=== PATIENT | male | born 1945 | race American Indian/Alaskan Native ===

== ENCOUNTER 2016-11-08 11:24 | Inpatient (IN) | payer MEDICARE, OTHER ==
--- NOTE | ~2016-11-08 | DS ---
Unit #: [id number] #: [id number] Patient: SKY FAJARDO [id number] [address] [place], [place] [address] [id number] I MR#: [id number] NAME: SKY FAJARDO ROOM: [facility] Age: 71 Sex: M Admission Date: 11/08/2016 : 1945 Discharge Date: 11/09/2016 Attending Physician: Garett Barajas M.D. Primary Care Physician: Aster Primary Care Physician DISCHARGE SUMMARY ADMITTING DIAGNOSIS Hematuria. 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 Alonso. HISTORY OF PRESENT ILLNESS The patient is a 71-year-old man with a past medical history of ANCA vasculitis, ESRD on hemodialysis, chronic anemia, BPH, hypothyroidism, COPD who presented to the emergency room with a chief complaint of abdominal pain and blood in the urine. He complained of noting gross blood and blood clots. His hemoglobin remained stable. He was dialyzed last night. HOSPITAL COURSE We were monitoring his H and H and renal was following for dialysis requirements. In the hospital course, he also mentioned that he was supposed to get a lung biopsy tomorrow with Dr. Campuzano at [facility] and he requested to be transferred to [facility] for further care. I spoke with Dr. Currie at [facility] and he is kind to accept the patient. The patient follows up with Dr. Amaya at [facility] Urology and he also follows up with Dr. Campuzano and [facility] Renal team. I requested Dr. Currie to consult those consultants, and he will be transferred once a bed is available. PHYSICAL EXAMINATION On the day of the discharge, his physical examination: VITAL SIGNS: Temperature 98, pulse rate 85, respiratory rate 20, blood pressure 148/86. GENERAL: The patient is alert and oriented x3, lying in the bed in no acute distress. HEENT: Normocephalic and atraumatic. No icterus. PERRLA. Extraocular muscles intact. CHEST: Bilateral equal air entry. Minimal rhonchi. ABDOMEN: Soft, nontender. EXTREMITIES: No edema. Normal pulses. DIAGNOSTIC STUDIES LABORATORY: This morning glucose 101, BUN 28, creatinine 5.5, sodium 137, potassium 3.6, chloride 100, bicarbonate 27. WBC 10.7, hemoglobin 10.6. Please note, hemoglobin yesterday was 10.3. Platelet count is 109,000. UA shows innumerable WBC in the urine. MEDICATIONS Unit #: [id number] #: [id number] Patient: SKY FAJARDO His transfer medications include: 1. Flomax 0.4 mg at bedtime. 2. Zofran 4 mg p.r.n. nausea and vomiting. 3. Singulair 10 mg daily. 4. Synthroid 20 mcg p.o. daily. 5. Folic acid. 6. Renagel one capsule p.o. daily. 7. Rocephin 1 g IV daily. Patient is agreeable for transfer. Total time spent in the care, 35 minutes. Dictated by... Garett Barajas M.D. [place] TD: 11/09/2016 15:35 JOB #: [id number] DISCHARGE SUMMARY X X DISCHARGE SUMMARY
--- NOTE | ~2016-11-08 | CT4 ---
[facility] A Service of [facility] RADIOLOGY TEXT RESULTS PATIENT: SKY FAJARDO LOCATION: C3A 342-01 : 43 UNIT #: [id number] AGE: [address]: Garett Barajas MD SEX: M ORDER DR: [id number] [facility] [address] [facility]. [place], [place] [address] [id number] I MR#: [id number] Acc #: [id number] NAME: SKY FAJARDO : 1945 SEX: M STUDY DATE/TIME: 11/08/2016 10:47 UNIT: CEDOF ROOM: 83452 STUDY DESCRIPTION: CT Abd and Pelv Wo Cont Attending Physician: Elsy Avila M.D. Ordering Physician: Dyan Carreon M.D. Primary Care Physician: Primary Care Physician No MEDICAL IMAGING REPORT This report is preliminary unless electronic signature is present EXAM CT abdomen and pelvis without contrast HISTORY Abdominal pain, blood in urine for 3 days. History of dialysis. COMPARISON CT abdomen and pelvis, 04/19/2016 TECHNIQUE Axial images were performed through the abdomen and pelvis without contrast. Multiplanar reconstructed images were reviewed at a workstation. This CT exam was performed with one or more of the following radiation dose reduction techniques: automatic exposure control, adjustment of mA and/or kV according to patient size, and iterative reconstruction. FINDINGS ABDOMEN: The lung bases remarkable for fibrosis and emphysematous changes. No acute airspace disease or effusions. The liver, spleen and gallbladder are unremarkable. The pancreas and adrenal glands are unremarkable. There is diffuse perinephric stranding about the left kidney with thickening of Gerota's fascia. Mild prominence of the left renal collecting system but no definitive obstructing stone or lesion. The perinephric edema nonspecific but could be seen with acute pyelonephritis or obstruction. Patient also demonstrates some generalized mesenteric edema. Minimal perinephric edema about the right kidney. Coarse calcifications within the posterior aspect of the right kidney probably represents cortical calcification. Aorta and IVC unremarkable. The visualized GI tract unremarkable. There is a small amount of free fluid in the pelvis. [facility] A Service of [facility] RADIOLOGY TEXT RESULTS PATIENT: TANASKY LOCATION: C3A PC 342-01 : 43 UNIT #: [id number] AGE: [address]: Garett Barajas MD SEX: M ORDER DR: PELVIS: Bladder contracted. Prostate unremarkable. The osseous structures show multiple endplate deformities L2, L3, L4 compatible with interosseous disc herniations or Schmorl's nodes. These are unchanged from prior studies. IMPRESSION 1. Asymmetric perinephric edema left greater than right with extensive thickening of Gerota's fascia surrounding the left kidney and some edema and fluid within the left lateral conal fascia and left posterior pararenal space. The findings are nonspecific and can be seen with an acute infectious process such as pyelonephritis or acute obstruction. Patient does demonstrate minimal prominence of the left renal collecting system but no discrete obstructing lesion such as a stone or mass lesion is identified. There is perinephric edema is in combination with some generalized mesenteric edema which is nonspecific in this patient on dialysis. 2. Visualized GI tract unremarkable. 3. Trace amount of free fluid in the pelvis, nonspecific. 4. Diffuse lung disease with underlying emphysema and fibrosis but no definite acute process. Dictated by... Juan C Baires M.D. THIS IS AN ELECTRONICALLY VERIFIED REPORT Juan C Baires M.D. at 11/09/2016 4:59 PM Yasmin TD: 11/08/2016 17:29 JOB #: [id number] MEDICAL IMAGING REPORT COPY
--- NOTE | ~2016-11-08 | HP ---
Unit #: [id number] #: [id number] Patient: SKY FAJARDO [id number] [address] [place], [place] [address] [id number] MR#: [id number] NAME: SKY FAJARDO ROOM: Age: 71 Sex: M Admission Date: 11/08/2016 : 1945 Attending Physician: Dyan Carreon M.D. Primary Care Physician: No Primary Care Physician HISTORY AND PHYSICAL CHIEF COMPLAINT Abdominal pain, blood in urine. HISTORY OF PRESENT ILLNESS The patient is a 71-year-old male with a past medical history of ASCA vasculitis, endstage renal disease on dialysis, chronic anemia, BPH, hypothyroidism and chronic obstructive pulmonary disease. The patient presented to the emergency department for evaluation of the above. The patient states that he has not been feeling well for about two days. He reports nausea and vomiting. He states that he has had more than 10 bouts of nonbloody emesis within the past 24 hours. He states that he had a normal bowel movement today. He has had pain around his umbilicus. He states that it feels like he has "trapped gas." He states that the pain is fairly constant in nature. There are no exacerbating or alleviating factors. He has had fever. He states that his temperature was 102.9 on the day prior to admission. He denies any cough or cold symptoms. He also has had intermittent blood in the urine. He has had grossly bloody urine for the past two days. In the emergency department temperature was 98.6, pulse 89, blood pressure 142/71. CT of the abdomen and pelvis shows findings concerning for possible pyelonephritis with perinephric stranding (left greater than right). CBC notable for a white blood cell count of 16.8, platelets 104. Urinalysis notable for 1+ leukocyte esterase, 4+ blood with innumerable red blood cells and 2-5 white blood cells. In the emergency department he was given vancomycin and Rocephin. He is being admitted to [facility] for evaluation and further treatment. PAST MEDICAL HISTORY 1. Admission to [facility] 09/10/2016 through 09/15/2016 for urinary tract infection with coag negative staph sepsis. He was discharged home on Zyvox. 2. ANCA vasculitis. The patient is not on any immunosuppression. 3. Endstage renal disease on dialysis Tuesday, Tuesday and Tuesday. Followed by [facility]. His last dialysis was on 11/05/2016. 4. Chronic anemia. 5. BPH. 6. Hypothyroidism. 7. Chronic obstructive pulmonary disease, followed by Dr. Faustin. PAST SURGICAL HISTORY 1. Exploratory laparotomy. 2. Shunt for dialysis, left upper extremity. Unit #: [id number] #: [id number] Patient: DULAK,SKY 3. Cystoscopy. SOCIAL HISTORY The patient quit smoking. He reports occasional alcohol use. FAMILY HISTORY Notable for him being orphaned at 18 months. He is not sure of his family history. ALLERGIES Ibuprofen. CURRENT MEDICATIONS 1. Synthroid 0.2 mg daily. 2. Montelukast 10 mg daily. 3. Flomax 0.4 mg daily. 4. Renal softgel daily. REVIEW OF SYSTEMS A complete review of systems is negative except as indicated in the history of present illness. PHYSICAL EXAMINATION GENERAL: The patient is awake and alert, in no acute distress. VITALS: Temperature 98.6, pulse 89, respiratory rate 15, blood pressure 142/71, oxygen saturation 98% on room air. HEENT: The head is atraumatic. Mucous membranes are moist. NECK: Supple. Trachea midline. LUNGS: Clear to auscultation bilaterally with no increased work of breathing. HEART: Regular rate and rhythm. ABDOMEN: Soft. He is mildly tender to palpation in the periumbilical area. Bowel sounds are present in all four quadrants. EXTREMITIES: Nontender with no pedal edema. He does have a fistula in the left upper extremity with thrill and bruit. NEUROLOGIC: The patient is awake and alert. He follows commands. PSYCHIATRIC: Mood and affect are normal. The patient is cooperative. SKIN: Skin of examined areas is warm and dry. DIAGNOSTIC STUDIES IMAGING: CT of the abdomen and pelvis shows perinephric edema (left greater than right), concerning for possible pyelonephritis. LABORATORY: INR is 1. CMP notable for sodium of 131, chloride 96, bicarb 21, BUN 52, creatinine 9, calcium 8.1, alkaline phosphatase 195, albumin 3.2, lipase 17, magnesium 1.8, BNP 777. CBC notable white blood cell count 16.8, hemoglobin 10.3, hematocrit 30.1, platelets 104. Urinalysis notable for 1+ leukocyte esterase, 3+ protein, 4+ blood with innumerable red blood cells. ASSESSMENT The patient is a 71-year-old male with 1. Abdominal pain. 2. Gross hematuria. The patient had cystoscopy in 09/2016 (no records). He does have a history of ANCA vasculitis. 3. Leukocytosis. The patient denies being on prednisone. CT is showing findings concerning for possible pyelonephritis. He was given vancomycin and Rocephin in the emergency department. Unit #: [id number] #: [id number] Patient: DULVIANNEYSKY 4. ANCA vasculitis. Not on immunosuppression. 5. Endstage renal disease, followed by [facility], on dialysis Tuesday, Tuesday and Tuesday, with last dialysis being 11/05/2016. 6. Chronic anemia. The patient's hemoglobin was 9.7 on 09/14/2016 and it is 10.3 today. 7. Thrombocytopenia. The patient's platelet count has been as low as 109 on 04/20/2016 and it is 104 today. 8. BPH. 9. Hypothyroidism. 10. Chronic obstructive pulmonary disease. 11. Former smoker. PLAN 1. Admit for observation to intermediate level. 2. Advance diet to clear liquids as tolerated. 3. Blood cultures times two. 4. Urine culture and sensitivity on urine in the lab. 5. Rocephin IV and vancomycin IV. Pending further workup. The patient does have a history of coag negative staph, sepsis and was discharged home on Zyvox following last hospital admission. 6. Get cystoscopy report from [facility]. 7. Consult [facility] regarding endstage disease on dialysis. Check lactic acid. 8. Chest x-ray for further evaluation of leukocytosis. 9. EKG and cardiac enzymes. 10. TSH. 11. Repeat labs in the morning. 12. SCDs for DVT prophylaxis. 13. P.r.n. Zoan. 14. Additional workup and consultants based on the above. Dictated by Elsy Avila M.D. Kay TD: 11/08/2016 13:15 JOB #: [id number] HISTORY AND PHYSICAL X Elsy vAila MD HISTORY AND PHYSICAL
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
--- NOTE | ~2016-11-08 | EKG ---
PATIENT: SKY FAJARDO UNIT #: [id number] Ventricular Rate: 83 BPM Atrial Rate: 83 BPM P-R Interval: 166 ms QRS Duration: 106 ms Q-T Interval: 408 ms QTC Calculation(Bezet): 479 ms P Loomis: 64 degrees Calculated R Loomis: 74 degrees Calculated T Loomis: 85 degrees Diagnosis Line: Normal sinus rhythm Diagnosis Line: Moderate voltage criteria for LVH, may be normal Diagnosis Line: variant Diagnosis Line: Borderline ECG Diagnosis Line: When compared with ECG of 08-NOV-2016 13:25, Diagnosis Line: (unconfirmed) Diagnosis Line: No significant change was found Diagnosis Line: Confirmed by KENISHA HOOD MD ([id number]) on Diagnosis Line: 11/09/2016 4:11:19 PM INTERPRETING MD: ERWIN SON
--- NOTE | ~2016-11-08 | CR72 ---
[facility] A Service of [facility] RADIOLOGY TEXT RESULTS PATIENT: SKY FAJARDO LOCATION: C3A PC : 43 UNIT #: [id number] AGE: [address]: Elsy Avila MD SEX: M ORDER DR: [id number] [place] [id number] [facility]. [place], [place] [address] [id number] I MR#: [id number] Acc #: [id number] NAME: SKY FAJARDO : 1945 SEX: M STUDY DATE/TIME: 11/08/2016 13:52 UNIT: C3A PCU ROOM: 342 STUDY DESCRIPTION: CR Chest Single View Portable Attending Physician: Elsy Avila M.D. Ordering Physician: Elsy Avila M.D. Primary Care Physician: Primary Care Physician No MEDICAL IMAGING REPORT This report is preliminary unless electronic signature is present EXAM Frontal chest, 11/08/2016 INDICATION 71-year-old male with elevated blood count. Short of air, abdominal pain and chest pain. Symptoms began today. History of asthma and dialysis. TECHNIQUE Frontal chest compared with 11/04/2016. FINDINGS Cardiac silhouette is within normal limits. The vascularity is unremarkable. There are interstitial and faint alveolar opacities in the lower lobes, right greater than left that are new compared to the prior study and suspicious for subtle parenchymal infiltrates. No associated effusion. No pneumothorax. There is underlying COPD. There is chronic-appearing apical scarring bilaterally. This is worse on the right than the left. IMPRESSION 1. COPD and chronic lung changes with faint new superimposed opacities in both mid and lower lung zones, right greater than left suspicious for interval development of parenchymal infiltrate/pneumonia. Follow up to clearing after appropriate therapy is recommended. 2. No effusion or pneumothorax. 3. Biapical scarring, right greater than left, better demonstrated on recent CT 09/12/2016. Dictated by... Bryce Bourne M.D. [facility] A Service of [facility] RADIOLOGY TEXT RESULTS PATIENT: DULAK,SKY LOCATION: C3A : 43 UNIT #: [id number] AGE: [address]: Elsy Avila MD SEX: M ORDER DR: THIS IS AN ELECTRONICALLY VERIFIED REPORT Bryce Bourne M.D. at 11/09/2016 7:20 AM Ramandeep TD: 11/08/2016 23:16 JOB #: [id number] MEDICAL IMAGING REPORT COPY
[2016-11-08 09:28] LABS: BASOPHIL# 0.1 X10e3 (0-0.3); BASOPHIL% 0.5 % (0-2.5); EOSINOPHIL# 0.1 X10e3 (0-0.7); EOSINOPHIL% 0.8 % (0.0-7.0); HEMATOCRIT 30.1 % (38.0-50.0); HEMOGLOBIN 10.3 gm/dL (13.0-16.0); LYMPHOCYTE# 0.9 X10e3 (1.0-3.5); LYMPHOCYTE% 5.1 % (17.0-45.0); MEAN CELL VOLUME 97.3 FL (83-96); MEAN CORPUSCULAR HEMOGLOBIN 33.3 PG (28-34); MEAN CORPUSCULAR HGB CONC 34.2 g/dL (30-36); MEAN PLATELET VOLUME 7.3 FL (6.5-11.5); MONOCYTE# 1.6 X10e3 (0-1.0); MONOCYTE% 9.3 % (3.0-12.0); NEUTROPHIL# 14.1 X10e3 (1.5-7.1); NEUTROPHIL% 84.3 % (40-75); PARTIAL THROMBOPLASTIN TIME 30.3 SECONDS (23.5-31.3); PLATELET COUNT 104 X10e3 (140-420); PROTHROMBIN TIME (PATIENT) 10.5 SECONDS (9.6-11.5); RED CELL DISTRIBUTION WIDTH 15.6 % (11.0-15.5); WHITE BLOOD COUNT 16.8 X10e3 (4.0-10.5)
[2016-11-08 09:30] LABS: DIFF IND YES
[2016-11-08 09:58] LABS: ALBUMIN SERUM 3.2 g/dL (3.5-5.0); BILIRUBIN, DIRECT 0.2 mg/dL (0.0-0.2); BILIRUBIN,INDIRECT 0.8 mg/dL (0.0-0.9); BUN/CREATININE RATIO 5.77; CALCIUM SERUM 8.1 mg/dL (8.4-10.2); GLOM FILT RATE Estimated 6.2 mL/min (>60); MAGNESIUM 1.8 mg/dL (1.6-3.0); POTASSIUM 3.5 mmol/L (3.5-5.1); PROTEIN TOTAL SERUM 6.4 g/dL (6.0-8.3)
[2016-11-08 10:42] LABS: PLATELET ESTIMATE DECREASED (NORMAL); RBC NORMAL YES
[2016-11-08 11:20] LABS: URINE SOURCE CLEAN CATCH
[~2016-11-08 11:24] MED LIST: ADVAIR 250-501 EACH INH; ALBUTEROL17 GM INH; FLOMAX0.4 M1 PO; NEPHROCAPS1 CAP PO; OMNICEF300 M1 PO; PEPCID AC20 MG PO; RENAL VITAMIN0.8 MG PO; RENAVIT TABLET0.8 MG PO; STOOL SOFTENER50 MG PO; SYNTHROID0.05 MG PO; SYNTHROID0.15 MG PO; SYNTHROID175 MCG PO; TEMOVATE 0.05%15 GM EXT; VELPHORO500 MG PO; ZYVOX600 MG PO
[2016-11-08 11:32] LABS: URINE APPEARANCE CLOUDY; URINE BILIRUBIN NEG (NEG); URINE BLOOD 4+ (NEG); URINE COLOR RED; URINE GLUCOSE 50 MG/DL (NORM); URINE KETONE NEG (NEG); URINE LEUKOCYTE ESTERASE 1+ (NEG); URINE NITRATE NEG (NEG); URINE PROTEIN 3+ (NEG); URINE SPECIFIC GRAVITY 1.015 (1.003-1.035); URINE UROBILINOGEN NORM (NORM)
[2016-11-08 11:49] LABS: URBCS1 AUWI INNUM /[HPF] (0-2)
[2016-11-08 11:50] LABS: CULTURE INDICATED? NO; URINE BACTERIA AUWI NEG (NEGATIVE)
[2016-11-08] MEDS ORDERED: SYNTHROID0.2 MG PO (12:17)
[2016-11-08] MEDS ORDERED: MONTELUKAST SOD10 MG PO (12:18)
[2016-11-08] MEDS ORDERED: FLOMAX0.4 M1 PO (12:23)
[2016-11-08] MEDS ORDERED: RENAL SOFTGEL1 MG PO (12:23)
[2016-11-08 14:30] LABS: CK TOTAL 11 IU/L (36-174)
[2016-11-08 19:52] LABS: CK TOTAL 30 IU/L (36-174)
[2016-11-09 05:51] LABS: BASOPHIL% 0.3 % (0-2.5); EOSINOPHIL# 0.3 X10e3 (0-0.7); EOSINOPHIL% 2.4 % (0.0-7.0); HEMATOCRIT 31.2 % (38.0-50.0); HEMOGLOBIN 10.6 gm/dL (13.0-16.0); LYMPHOCYTE# 0.5 X10e3 (1.0-3.5); LYMPHOCYTE% 4.9 % (17.0-45.0); MEAN CELL VOLUME 96.8 FL (83-96); MEAN CORPUSCULAR HGB CONC 34.1 g/dL (30-36); MEAN PLATELET VOLUME 7.5 FL (6.5-11.5); MONOCYTE# 0.9 X10e3 (0-1.0); MONOCYTE% 8.5 % (3.0-12.0); NEUTROPHIL% 83.9 % (40-75); PLATELET COUNT 109 X10e3 (140-420); RED BLOOD COUNT 3.22 X10e (3.90-5.60); RED CELL DISTRIBUTION WIDTH 16.2 % (11.0-15.5); WHITE BLOOD COUNT 10.7 X10e3 (4.0-10.5)
[2016-11-09 05:57] LABS: DIFF IND NO
[2016-11-09 06:30] LABS: ALBUMIN SERUM 3.2 g/dL (3.5-5.0); BILIRUBIN,TOTAL 1.1 mg/dL (0.2-2.0); BUN/CREATININE RATIO 5.09; CALCIUM SERUM 8.6 mg/dL (8.4-10.2); GLOM FILT RATE Estimated 10.9 mL/min (>60); MAGNESIUM 1.9 mg/dL (1.6-3.0); POTASSIUM 3.6 mmol/L (3.5-5.1); PROTEIN TOTAL SERUM 6.7 g/dL (6.0-8.3)
[2016-11-09 06:35] LABS: CREATININE SERUM 5.5 mg/dL (0.6-1.4)
== END 2016-11-09 20:19 | DRG 696 ==
LOC: CED 11:24 → CEDOF 12:45 → C3A PCU 11-09 11:06
PROVIDERS: Family Medicine; Student in an Organized Health Care Education/Training Program
PROC: 5A1D00Z (ICD-10-PCS; principal; 2016-11-09)
DX: R31.0 Gross hematuria (principal); N18.6 End stage renal disease; I12.0 Hypertensive chronic kidney disease with stage 5 chronic kidney disease or end stage renal disease; J44.9 Chronic obstructive pulmonary disease, unspecified; D69.6 Thrombocytopenia, unspecified; E03.9 Hypothyroidism, unspecified; I77.6 Arteritis, unspecified; D63.1 Anemia in chronic kidney disease; N40.0 Benign prostatic hyperplasia without lower urinary tract symptoms; Z87.891 Personal history of nicotine dependence
CPT/HCPCS: 36415; 71010; 74176; 80048; 80053; 80076; 80202; 81003; 82550; 83605; 83690; 83735; 83880; 84100; 84443; 84484; 85025; 85610; 85730; 87040; 87086; 93005; 96361; 96374; 96375; 99285; G0378; J0696; J2270; J2405; J3370

== ENCOUNTER 2016-12-02 15:41 | Inpatient (IN) | payer MEDICARE, OTHER ==
--- NOTE | ~2016-12-02 | DS ---
Unit #: [id number] #: [id number] Patient: SKY FAJARDO [id number] [address] [address] [id number] MR#: [id number] NAME: SKY FAJARDO ROOM: 220 Age: 71 Sex: M Admission Date: 12/02/2016 : 1945 Discharge Date: 12/05/2016 Attending Physician: May Swift M.D. Primary Care Physician: Kirk Garcia M.D. DISCHARGE SUMMARY DISCHARGE DIAGNOSES 1. Healthcare-acquired pneumonia. 2. Chronic obstructive pulmonary disease exacerbation. 3. End-stage renal disease. 4. Interstitial pneumonia. 5. Sepsis. 6. Vasculitis. HOSPITAL COURSE The patient is a 71-year-old male, who presents to [facility] Emergency Department with a complaint of hematuria. During the course of the workup, the patient was noted to have an increasing right lower lobe opacity and the patient did complain of some shortness of breath. Ultimately, it was felt the patient had some healthcare associated pneumonia concerning for gram-negative and/or MRSA given some recent admissions at [facility]. Thus the patient was admitted. Ultimately, sputum cultures have come back with Klebsiella and the patient is being discharged home on Augmentin. In addition to the above, however, there was some question of antineutrophil cytoplasmic antibody vasculitis and some sort of inflammatory pneumonia. Ultimately report from the patient's recent stay at [facility] revealed that the patient had the usual interstitial pneumonia with a focal atypical squamous epithelium of uncertain significance. As a result, the patient is being discharged home on steroids and should follow up with Dr. Faustin for said pneumonia as was previously planned. Of note, the patient has not been able to keep his appointment with Dr. Faustin due to repeated admissions for pneumonia. DISCHARGE MEDICATIONS Combivent Respimat one puff q.i.d., finasteride 5 mg daily, montelukast 10 mg daily, Tylenol with Codeine 1 p.o. q.4 hours p.r.n. moderate to severe pain, levothyroxine 200 mcg p.o. daily, Mei-Inocencia capsule daily, vitamin B12 1000 mcg one p.o. daily, and prednisone 40 mg one p.o. daily. FOLLOWUP As mentioned above, the patient should follow up with Dr. Faustin at the earliest available appointment. Dictated by... Timothy Callejas M.D. Unit #: [id number] #: [id number] Patient: SKY FAJAROD RENETTA/markiel TD: 12/06/2016 00:34 JOB #: [id number] DISCHARGE SUMMARY Page 1 of 1 X Timothy Callejas MD X DISCHARGE SUMMARY
--- NOTE | ~2016-12-02 | HP ---
Unit #: [id number] #: [id number] Patient: SKY FAJARDO [id number] [facility] [place] [facility]. [place], [place] [address] [id number] MR#: [id number] NAME: SKY FAJARDO ROOM: Age: 71 Sex: M Admission Date: 12/02/2016 : 1945 Attending Physician: Darrell Murillo M.D. Primary Care Physician: Kirk Garcia M.D. HISTORY AND PHYSICAL CHIEF COMPLAINT Hematuria, vomiting. HISTORY OF PRESENT ILLNESS The patient is a 71-year-old male with past medical history of end-stage renal disease on dialysis, chronic anemia, ANCA vasculitis, COPD, hypothyroidism, hematuria, BPH, avascular necrosis of the hip, who presented to the emergency department for evaluation of the above. Of note, the patient was hospitalized at [facility] November 082016 for hematuria. He was actually transferred to [facility] for a lung biopsy. He subsequently was discharged home. He was then readmitted to [facility] for pneumonia and discharged home on an unknown antibiotic. He apparently returned home on November 26, 2016. He states that he has not really felt any better. He has had increasing shortness of breath and productive cough. He also started having blood in his urine today. He denies any fever. No chest pain. He has had vomiting but no diarrhea. In the emergency department initial pulse and blood pressure were 123 and 172/81 respectively, oxygen saturation was 100% on room air. Chest x-ray showed increasing right lower opacity. Laboratory notable for white blood cell count of 16.4. He is being admitted to [facility] for evaluation and further treatment. He received Phenergan, Protonix, vancomycin and Zosyn in the emergency department. PAST MEDICAL HISTORY 1. Admission to [facility] November 082016 for hematuria. He was transferred to [facility] for a lung biopsy. 2. End-stage renal disease on dialysis, followed by [facility] nephrology with dialysis on Tuesday, Tuesday, Tuesday. The last dialysis was yesterday. 3. History of ANCA vasculitis. 4. COPD. The patient has an appointment with Dr. Faustin but has not actually established care with him yet. 5. Chronic anemia. 6. BPH. 7. Hypothyroidism. 8. Avascular necrosis of the left hip. PAST SURGICAL HISTORY 1. Exploratory abdominal surgery. 2. Left upper extremity shunt for dialysis. Unit #: [id number] #: [id number] Patient: DULAK,SKY 3. Lung biopsy. 4. Cystoscopy. SOCIAL HISTORY The patient is a former smoker. He reports occasional alcohol use. FAMILY HISTORY Family history is notable for him being orphaned at the age of 18 months. He is not sure of his family history. ALLERGIES Ibuprofen. HOME MEDICATIONS Home medications are listed as montelukast, oxycodone, tamsulosin, finasteride, hydromorphone, levothyroxine. Home medications will need to be reviewed and verified. REVIEW OF SYSTEMS A complete review of systems is negative except as indicated in the HPII. DIAGNOSTIC STUDIES CARDIOVASCULAR: EKG shows sinus tachycardia with a rate of 114 beats per minute. IMAGING: Chest x-ray shows increasing right lower lobe opacity. LABORATORY: Troponin is less than 0.05. Complete blood count notable for white blood cell count of 16.4, hemoglobin and hematocrit 11.3 and 35 respectively. Comprehensive metabolic panel notable for glucose of 69, BUN and creatinine 32 and 4.7 respectively, calcium is 8, ALT is 42, alkaline phosphatase 216, albumin 3.2, amylase is 93, lipase is 25. PHYSICAL EXAMINATION VITAL SIGNS: Temperature is 97.8. Pulse 123. Respirations 16. Blood pressure 172/81. Oxygen saturation is 100% on room air. GENERAL: The patient is a male who is chronically ill appearing but in no acute distress. HEENT: The head is atraumatic. Mucous membranes are moist. NECK: Neck is supple. Trachea is midline. CARDIOVASCULAR: Cardiovascular is regular rate and rhythm. LUNGS: Demonstrate a few scattered rhonchi. Breathing is not labored with conversation. ABDOMEN: Abdomen is soft, nontender, with bowel sounds present in all four quadrants. EXTREMITIES: Nontender with no pedal edema. NEUROLOGIC: The patient is awake and alert. He follows commands. PSYCHIATRIC: The patient has a somewhat flat affect. SKIN: Skin of examined areas is warm and dry. He does have a few sutures remaining in the right chest. ASSESSMENT The patient is a 71-year-old male with: 1. Healthcare-associated pneumonia. The patient received vancomycin and Zosyn in the emergency department. 2. Sepsis. 3. End-stage renal disease on dialysis with last dialysis being yesterday, followed by [facility] nephrology. Unit #: [id number] #: [id number] Patient: TANA,SKY 4. Chronic anemia. The patient's hemoglobin was 10.6 on November 09, 2016. It is 11.3 today. 5. Antineutrophil cytoplasmic antibody vasculitis. 6. Chronic obstructive pulmonary disease. The patient has an appointment with Dr. Faustin. 7. Hypothyroidism. The patient's TSH was 0.41 on November 08, 2016. 8. Hematuria. 9. Benign prostatic hypertrophy. 10. Avascular necrosis of the left hip. 11. Former smoker. PLAN 1. Admit to intermediate level. 2. Blood cultures x2. 3. Sputum culture and sensitivity. 4. Supplemental oxygen 2 to 4 L to maintain saturations greater than 92%. 5. Procalcitonin level. 6. Streptococcal and Legionella urine antigens. 7. Vancomycin IV, tobramycin IV and Zosyn IV for healthcare-associated pneumonia pending further workup. 8. P.r.n. DuoNebs. 9. Sepsis protocol with STAT lactic acid and repeat lactic acid. 10. Urinalysis with culture and sensitivity. 11. Consult Dr. Faustin regarding healthcare-associated pneumonia. 12. Get pathology report from lung biopsy from [facility]. 13. Consult [facility] nephrology regarding end-stage renal disease and dialysis needs. 14. Serial cardiac enzymes. 15. P.r.n. Tylenol. 16. P.r.n. Zofran. 17. SCDs for DVT prophylaxis. 18. Repeat labs in the morning. 19. Additional workup and consultants based on above. Dictated by Isa Hoffman/jose g TD: 12/02/2016 18:38 JOB #: [id number] HISTORY AND PHYSICAL Page 1 of 1 X Elsy Avila MD HISTORY AND PHYSICAL
--- NOTE | ~2016-12-02 | CO ---
Unit #: [id number] #: [id number] Patient: SKY GENAO [id number] [address] [place], [place] [address] [id number] MR#: [id number] NAME: SKY GENAO ROOM: 220 Age: 71 Sex: M Admission Date: 12/02/2016 : 1945 Attending Physician: May Swfit M.D. Primary Care Physician: Kirk Garcia M.D. Requesting Physician: Elsy Avila M.D. Consultation Date: 12/03/2016 CONSULTATION REPORT We were asked to see him by Dr. Avila. REASON FOR CONSULTATION Pneumonia superimposed on possible idiopathic pulmonary fibrosis. HISTORY Mr. Genao is a 71-year-old male with a history of what was thought to be an ANCA vasculitis causing end stage renal disease. He had seen us in the office on 10/19/2016 for evaluation for possible kidney transplant. At that time, he was already scheduled for a lung biopsy with Dr. Campuzano to be done early November. This was done. He now presents with right-sided chest pain. Interestingly, he said he had this lung biopsy at [facility]. He did okay, but then apparently when he went home he had significant chest pain and went back and he does not know what they did, but they did something and he felt better. He now presents with recurrent right chest pain. He does not really complain of any increased cough or even any fever or chills. He does say that this is how he felt when he had pneumonia in the past. It is notable that the lung biopsy was read by [facility] pathologist, as usual interstitial pneumonia. He has not been started on any specific therapy for IPF at this time. PAST MEDICAL HISTORY 1. Significant for the ANCA vasculitis. I am uncertain how they are treating it but at one point it was debated whether to use Cytoxan or Rituxan. 2. History of end stage renal disease. 3. Anemia. 4. Hypothyroidism. 5. History of avascular necrosis of the hip. 6. History of COPD. PAST SURGICAL HISTORY 1. Exploratory abdominal surgery. 2. Left upper extremity shunt for dialysis. 3. Lung biopsy done November 11, 2016. 4. Cystoscopy. MEDICATIONS ON ADMISSION Had included Montelukast 10 mg p.o. daily; finasteride 5 mg p.o. daily; Tylenol with codeine q.4 p.r.n.; Levoxyl 200 mcg p.o. daily; Mei-Inocencia tablets p.o. daily; albuterol inhaler; and actually he was started on Brio 200 in our office. Unit #: [id number] #: [id number] Patient: DULAK,SKY ALLERGIES Ibuprofen. SOCIAL HISTORY He did smoke but he quit 16 years ago. He smoked maybe about a pack a day. FAMILY HISTORY Unknown to the patient because he said he was an orphan. SYSTEMS REVIEW He has no nausea, vomiting, diarrhea and no leg swelling. He says he can produce urine and he does have a little hematuria. He has significantly decreased memory and poor short-term memory. All other systems are negative except as mentioned. PHYSICAL EXAMINATION GENERAL: He presents as an older male in no acute distress. VITAL SIGNS: Temperature was 97.9, pulse 101, respiration 20, blood pressure 139/85. Saturation is 98% on room air. NECK: Without adenopathy. LUNGS: Evaluation of his lungs revealed breathing was not labored. He had very scant scattered inspiratory rhonchi and I was quite surprised that he didn't have any of the characteristic crackles that would be expected of IPF. HEART: Regular. ABDOMEN: Soft. Nontender. Bowel sounds are present. EXTREMITIES: Without edema. NEUROLOGIC: He is awake and alert. DIAGNOSTIC STUDIES IMAGING STUDIES: Chest x-ray to my exam revealed a vague, small, right lower lobe infiltrate. I actually took a look of his CAT scan of the lung. On the lung windows he has some apical fibrosis, really more characteristic of what I would expect for COPD. He had actually a right upper lobe density that probably is just scarring. He had just hints of subpleural cystic changes mid to lower lobes. He had a right upper lobe posterior atelectasis. He had a little bit of right middle lobe atelectasis that is somewhat linear. He had a little bit of honeycombing medial aspect of right lower lobe, some cystic changes, and a little bit of increased interstitial markings towards the bases. I probably would think if I just looked at this CAT scan that it could be consistent with IPF but it doesn't look classic for IPF in my opinion. When the radiologist read it, they suggested apical fibrosis and emphysema changes but really didn't get excited about scarring particularly in the lower lobes. LABORATORY STUDIES: White blood cell count this admission was (1) , and H 11.3 and 35, 154,000 platelets, MCV 104. Serum chemistries - BUN 43, creatinine 5.7, calcium was 7.3, lactic acid was 0.7. I do not see a procalcitonin. Blood was sent for cultures and is pending, so far no growth but only 24 hours. Sputum was sent and so far they are just describing bacterial forms. IMPRESSION 1. Vague right lower lobe infiltrate, which I guess I would presume that this is pneumonia, although it is a little atypical. 2. Idiopathic pulmonary fibrosis. This is basically read as usual Unit #: [id number] #: [id number] Patient: DULAK,SKY interstitial pneumonia on a biopsy date, 11/11/2016, and also note focal atypical squamous epithelium of uncertain significance. 3. Presumed ANCA vasculitis. PLAN He is on Zosyn and vancomycin. I normally would have some concerns about kidneys but I do not think that is a concern for him. I would indeed like to consider brief IV steroids. As far as the IPF is concerned, I think I would want to treat the pneumonia and then we can decide about pirfenidone verses OFEV in the office. As an addendum, I am leaving a PFT from my office, FEV1 2.72 78% predicted, EFVC 2.71 102% predicted. Ratio of the two is 58%, consistent with mild obstructive ventilatory defect. Dictated by... Isa Jaramillo/mamadou TD: 12/05/2016 18:32 JOB #: [id number] CONSULTATION REPORT Page 1 of 1 X Gutierrez Faustin MD CONSULTATION REPORT
--- NOTE | ~2016-12-02 | CR63 ---
[facility] A Service of [facility] RADIOLOGY TEXT RESULTS PATIENT: SKY FAJARDO LOCATION: C2A : 43 UNIT #: [id number] AGE: [address]: May Swift MD SEX: M ORDER DR: [id number] [facility]. [place], [place] [address] [id number] MR#: [id number] Acc #: [id number] NAME: SKY FAJARDO : 1945 SEX: M STUDY DATE/TIME: 12/02/2016 17:04 UNIT: [facility] ROOM: STUDY DESCRIPTION: CR Chest 2 View Attending Physician: Darrell Murillo M.D. Ordering Physician: Darrell Murillo M.D. Primary Care Physician: Kirk Garcia M.D. MEDICAL IMAGING REPORT This report is preliminary unless electronic signature is present EXAM 2 views of the chest COMPARISON November 20, 2016, November 17, 2016 and November 2016. IMPRESSION A 71-year-old male with dyspnea today. FINDINGS Cardiomediastinal silhouette is within normal limits. Left subclavian vascular stent appears stable. Bulky undersurface spurring of both acromioclavicular joints noted. Suture material in the right lung base. There is increased right posterior basilar lung opacity with possible opacity in the anterior inferior right middle lobe as well which could represent atelectasis versus pneumonia. Left lung is clear. Multilevel anterior osteophyte formation of the thoracic vertebral bodies. No significant pleural effusion. IMPRESSION 1. Increasing right lower lobe and possibly right middle lobe opacities concerning for possible pneumonia. Also consider atelectasis. Imaging followup recommended to ensure resolution. No pleural effusion. 2. Bulky undersurface spurring at both AC joints. Correlation for signs of symptoms of rotator cuff impingement recommended. Dictated by... Hal Liu M.D. THIS IS AN ELECTRONICALLY VERIFIED REPORT [facility] A Service of [facility] RADIOLOGY TEXT RESULTS PATIENT: SKY FAJARDO LOCATION: C2A 220-01 : [birth year] UNIT #: [id number] AGE: [address]: May Swift MD SEX: M ORDER DR: Hal Liu M.D. at 12/06/2016 8:43 PM CAYLA/rosa TD: 12/02/2016 20:37 JOB #: [id number] MEDICAL IMAGING REPORT Page 1 of 1 COPY
--- NOTE | ~2016-12-02 | EKG ---
PATIENT: SKY FAJARDO UNIT #: [id number] Ventricular Rate: 114 BPM Atrial Rate: 114 BPM P-R Interval: 128 ms QRS Duration: 96 ms Q-T Interval: 318 ms QTC Calculation(Bezet): 438 ms P Edon: 64 degrees Calculated R Edon: 36 degrees Calculated T Edon: 57 degrees Diagnosis Line: Sinus tachycardia Diagnosis Line: Moderate voltage criteria for LVH, may be normal Diagnosis Line: variant Diagnosis Line: Nonspecific ST abnormality Baseline wander Diagnosis Line: When compared with ECG of 08-NOV-2016 13:26, Diagnosis Line: No significant change was found Diagnosis Line: Confirmed by CRISTOPHER HERNANDEZ MD ([id number]) on 12/03/2016 Diagnosis Line: 4:36:28 PM INTERPRETING MD: DAVID SON
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
[~2016-12-02 15:41] MED LIST changes: +MONTELUKAST SOD10 MG PO; +RENAL SOFTGEL1 MG PO; +SYNTHROID0.2 MG PO
[2016-12-02 16:25] LABS: BASOPHIL# 0.1 X10e3 (0-0.3); BASOPHIL% 0.6 % (0-2.5); DIFF IND YES; EOSINOPHIL# 0.2 X10e3 (0-0.7); HEMOGLOBIN 11.3 gm/dL (13.0-16.0); LYMPHOCYTE# 0.6 X10e3 (1.0-3.5); LYMPHOCYTE% 3.6 % (17.0-45.0); MEAN CELL VOLUME 104.6 FL (83-96); MEAN CORPUSCULAR HEMOGLOBIN 33.7 PG (28-34); MEAN CORPUSCULAR HGB CONC 32.2 g/dL (30-36); MEAN PLATELET VOLUME 7.5 FL (6.5-11.5); NEUTROPHIL# 14.6 X10e3 (1.5-7.1); NEUTROPHIL% 88.8 % (40-75); PLATELET COUNT 154 X10e3 (140-420); RED BLOOD COUNT 3.35 X10e (3.90-5.60); RED CELL DISTRIBUTION WIDTH 18.9 % (11.0-15.5); WHITE BLOOD COUNT 16.4 X10e3 (4.0-10.5)
[2016-12-02 16:25] LABS: POC - CKMB <1.0 ng/mL (0.0-7.9); POC - TROPONIN <0.05 ng/mL (<=0.05)
[2016-12-02 16:41] LABS: ALBUMIN SERUM 3.2 g/dL (3.5-5.0); BILIRUBIN, DIRECT 0.3 mg/dL (0.0-0.2); BILIRUBIN,INDIRECT 1.1 mg/dL (0.0-0.9); BILIRUBIN,TOTAL 1.4 mg/dL (0.2-2.0); BUN/CREATININE RATIO 6.8; CREATININE SERUM 4.7 mg/dL (0.6-1.4); GLOM FILT RATE Estimated 11.4 mL/min (>60); PROTEIN TOTAL SERUM 6.8 g/dL (6.0-8.3)
[2016-12-02 16:43] LABS: ANISOCYTOSIS SL; PLATELET ESTIMATE NORMAL (NORMAL); TOXIC GRANULATION SL
[2016-12-02] MEDS ORDERED: MONTELUKAST SOD10 MG PO (19:26)
[2016-12-02] MEDS ORDERED: FINASTERIDE5 MG PO (19:27)
[2016-12-02] MEDS ORDERED: TYLENOL #3 PO (19:28)
[2016-12-02] MEDS ORDERED: RENAL-VITE TAB0.8 MG PO (19:29)
[2016-12-02] MEDS ORDERED: ALBUTEROL20 ml INH (19:29)
[2016-12-02] MEDS ORDERED: LEVOXYL200 MC1 PO (19:29)
[2016-12-03 01:40] LABS: CK TOTAL 10 IU/L (36-174)
[2016-12-03 07:07] LABS: URINE APPEARANCE CLEAR; URINE BILIRUBIN NEG (NEG); URINE BLOOD 3+ (NEG); URINE COLOR ORANGE; URINE GLUCOSE NEG (NEG); URINE KETONE NEG (NEG); URINE LEUKOCYTE ESTERASE TRACE (NEG); URINE NITRATE NEG (NEG); URINE PROTEIN 3+ (NEG); URINE UROBILINOGEN 0.2 MG/DL (NEG)
[2016-12-03 07:11] LABS: CULTURE INDICATED? YES; URBCS1 AUWI INNUM /[HPF] (0-2); URINE BACTERIA AUWI NEG (NEGATIVE); URINE SQUAMOUS EPITHELIAL CELL NONE SEEN /[HPF]
[2016-12-03 07:39] LABS: CK TOTAL 13 IU/L (36-174)
[2016-12-03 08:00] LABS: ALBUMIN SERUM 2.3 g/dL (3.5-5.0); BILIRUBIN,TOTAL 0.8 mg/dL (0.2-2.0); BUN/CREATININE RATIO 7.54; CALCIUM SERUM 7.3 mg/dL (8.4-10.2); CREATININE SERUM 5.7 mg/dL (0.6-1.4); GLOM FILT RATE Estimated 9.1 mL/min (>60); MAGNESIUM 1.7 mg/dL (1.6-3.0); POTASSIUM 4.2 mmol/L (3.5-5.1)
[2016-12-04 09:59] LABS: HEMATOCRIT 30.8 % (38.0-50.0); HEMOGLOBIN 10.2 gm/dL (13.0-16.0); MEAN CELL VOLUME 102.4 FL (83-96); MEAN CORPUSCULAR HEMOGLOBIN 33.8 PG (28-34); MEAN PLATELET VOLUME 7.2 FL (6.5-11.5); RED BLOOD COUNT 3.01 X10e (3.90-5.60); RED CELL DISTRIBUTION WIDTH 18.2 % (11.0-15.5); WHITE BLOOD COUNT 10.8 X10e3 (4.0-10.5)
[2016-12-04 10:35] LABS: BUN/CREATININE RATIO 6.15; CALCIUM SERUM 8.2 mg/dL (8.4-10.2); CREATININE SERUM 3.9 mg/dL (0.6-1.4); GLOM FILT RATE Estimated 14.3 mL/min (>60); POTASSIUM 3.9 mmol/L (3.5-5.1)
[2016-12-04 10:44] LABS: PROCALCITONIN 8.27 NG/ML
[2016-12-05 07:07] LABS: BUN/CREATININE RATIO 9.61; CALCIUM SERUM 8.1 mg/dL (8.4-10.2); CREATININE SERUM 5.2 mg/dL (0.6-1.4); GLOM FILT RATE Estimated 10.1 mL/min (>60); POTASSIUM 4.2 mmol/L (3.5-5.1)
[2016-12-05] MEDS ORDERED: PREDNISONE10 MG/DOSE PO (17:03)
[2016-12-05] MEDS ORDERED: COMBIVENT RESPIM4 GM INH (17:03)
[2016-12-05] MEDS ORDERED: VITAMIN B122500 MCG PO (17:04)
[2016-12-05] MEDS ORDERED: AUGMENTIN875 M1 PO (17:04)
== END 2016-12-05 17:31 | disposition home or self-care (01) | DRG 871 ==
LOC: CED 15:41 → CEDOF 18:26 → C3A PCU 22:35 → C2A 12-04 19:41
PROVIDERS: Emergency Medicine; Family Medicine; Internal Medicine; Internal Medicine Pulmonary Disease
PROC: 5A1D00Z (ICD-10-PCS; principal; 2016-12-04)
DX: A41.50 Gram-negative sepsis, unspecified (principal); N18.6 End stage renal disease; J84.9 Interstitial pulmonary disease, unspecified; J15.6 Pneumonia due to other Gram-negative bacteria; J84.10 Pulmonary fibrosis, unspecified; J44.9 Chronic obstructive pulmonary disease, unspecified; E44.0 Moderate protein-calorie malnutrition; M87.852 Other osteonecrosis, left femur; I77.6 Arteritis, unspecified; Z99.2 Dependence on renal dialysis; R31.9 Hematuria, unspecified; E03.9 Hypothyroidism, unspecified; N40.0 Benign prostatic hyperplasia without lower urinary tract symptoms; Z87.891 Personal history of nicotine dependence; D64.9 Anemia, unspecified
CPT/HCPCS: 36415; 71020; 80048; 80053; 80076; 80200; 80202; 81003; 82150; 82308; 82550; 82553; 82607; 83605; 83690; 83735; 84100; 84484; 85025; 85027; 87040; 87070; 87077; 87086; 87186; 87205; 87340; 92610; 93005; 94010; 94640; 94760; 96365; 96367; 96375; 97161; 99291; C9113; G8978-GP; G8979-GP; G8980-GP; G8996-GN; G8997-GN; G8998-GN; J0696; J2185; J2405; J2543; J2550; J2930; J3260; J3370

== ENCOUNTER 2016-12-08 22:32 | Inpatient (IN) | payer MEDICARE, OTHER ==
--- NOTE | ~2016-12-08 | CO ---
Unit #: [id number] #: [id number] Patient: SKY FAJARDO [id number] [facility]. [place], [place] [address] [id number] MR#: [id number] NAME: SKY FAJARDO ROOM: 463 Age: 71 Sex: M Admission Date: 12/09/2016 : 1945 Attending Physician: Timothy Callejas M.D. Primary Care Physician: Kirk Garcia M.D. Consultation Date: 12/09/2016 CONSULTATION REPORT ATTENDING PHYSICIAN Dr. Timothy Callejas. REASON FOR CONSULTATION Intractable nausea and vomiting. HISTORY OF PRESENT ILLNESS Mr. Dowd is a 71-year-old white gentleman. The patient was examined in his room and his was present in the room at the bedside. The patient has a longstanding history of end-stage renal disease, on hemodialysis and is undergoing evaluation for renal transplantation for prospective renal transplant at [facility]. The patient apparently had a lung biopsy as a part of the pre-transplant workup on 11/11/2016 and since then has been having right upper quadrant abdominal pain along with nausea and vomiting, which is very frequent. He ended up coming to the hospital as a result of the symptoms. He says the pain is quite intense and is variably related to meals. There is no history of any fever, chills, or rigors. 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 PAST SURGICAL HISTORY Included a lung biopsy, left upper arm shunt placement for dialysis, exploratory abdominal surgery, avascular necrosis of left hip. MEDICATIONS At home included the following; Tylenol, Synthroid, Mei-Inocencia, Combivent, vitamin B12, Augmentin, Proscar, and Singulair. ALLERGIES He is allergic to ibuprofen. FAMILY HISTORY None of colon, pancreatic cancer, or liver disease. The patient was orphaned at age 18 months. SOCIAL HISTORY Does not lives with his fiancee and daughter. Uses occasionally alcohol. Stopped smoking about 15 to 16 years ago. Unit #: [id number] #: [id number] Patient: SKY FAJARDO REVIEW OF SYSTEMS Detailed review of organ systems does not reveal any recent weight loss. No history of fever, chills, or rigors. No history of headache, seizures, chest pain, or syncope. No history of cough, expectoration, or hemoptysis. No history of dysuria, hematuria, or pyuria. No history of focal seizures or extremity weakness. No history of skin rash, aphthous ulcer in the mouth, or reactive arthritis. No history of overt GI bleed. PHYSICAL EXAMINATION GENERAL: He is alert and oriented, and appears comfortable. VITAL SIGNS: Stable with a temperature of 99.8, pulse is 87 per minute and regular, respiratory rate is 14, blood pressure is 145/69. He weighs 146 pounds, his baseline weight is about the same. HEENT: He has mild pallor. There being no icterus, lymphadenopathy, or peripheral edema. CARDIOVASCULAR: Normal heart sounds. No murmurs on auscultation. LUNGS: Reveal normal breath sounds. Good air entry. ABDOMEN: Soft and nontender. Liver and spleen are not palpable. Bowel sounds normal. DIAGNOSTIC STUDIES LABORATORY RESULTS: Show a white count of 14,000 with left shift. Hemoglobin of 10, MCV of 102, and platelet count of 98. INR is 1.0. Serum chemistry shows a BUN and creatinine of 27 and 4.6. Sodium is 134, potassium 3.8, albumin is 2.5. Bilirubin, AST and ALT are completely normal, and alkaline phosphatase is 264. BNP is 777. IMAGING STUDIES: The patient's ultrasound shows a normal gallbladder and common bile duct that is about 8 mm. CLINICAL IMPRESSION There is little suggestion of common bile duct stones and no evidence of cholelithiasis on imaging studies. A HIDA scan is needed to know if the patient has any chronic cholecystitis and this will be performed tomorrow. A diagnostic endoscopy will be done at the same time. The pros and cons of the procedure, potential risks, complications were discussed with the patient and his fiancee and they were reassured. Thank you for asking me to see this pleasant gentleman. I appreciate the consult. Dictated byIsa Jeffries/may TD: 12/10/2016 01:44 JOB #: [id number] CC: Kirk Garcia M.D. Unit #: [id number] #: [id number] Patient: SKY FAJARDO CONSULTATION REPORT Page 1 of 1 X Quincy Monique MD CONSULTATION REPORT
--- NOTE | ~2016-12-08 | OR ---
Unit #: [id number] #: [id number] Patient: SKY FAJARDO [id number] [address] [place], [place] [address] [id number] I MR#: [id number] NAME: SKY FAJARDO ROOM: 463 Date of Procedure: 12/10/2016 Admission Date: 12/09/2016 Surgeon: Quincy Monique M.D. : 1945 Attending Physician: Timothy Callejas M.D. Primary Care Physician: Kirk Garcia M.D. OPERATIVE REPORT PRIMARY CARE PHYSICIAN Kirk Garcia M.D. PREOPERATIVE DIAGNOSIS Right upper quadrant abdominal pain. The pain apparently started when the patient had lung biopsy on that side as a workup for renal transplant. He has end-stage renal disease, on hemodialysis. PROCEDURE PERFORMED Upper gastrointestinal endoscopy. POSTOPERATIVE DIAGNOSES The patient had residual food versus barium, which was filling most of the gastric fundus and body of the stomach lining the wall. However, the underlying mucosa could not be completely examined with the rest of the examination up to the third part of the duodenum was normal. RECOMMENDATIONS Start 1800-calorie CCD diet as tolerated. The patient's HIDA scan is also normal and he can be discharged home from GI standpoint. SEDATION USED MAC. DESCRIPTION OF PROCEDURE Following detailed explanation of potential risks and complications of an upper endoscopy, namely perforation, bleeding, and complications related to sedation, the patient was brought to GI lab and laid in the left lateral decubitus position. Lubricated tip of the Olympus video upper endoscope was passed through the bite block into the proximal esophagus under direct vision. The entire esophageal mucosa was examined and appeared normal. Z-line was nicely demarcated with there being no esophagitis or hiatus hernia. The scope was then advanced into the gastric cavity and the latter was insufflated. Mucosa of the fundus, body, and antrum was examined. The patient was noted to have large amount of solid residue, this was either barium or food residue, most likely barium in the stomach. The distal body and antrum was normal. Pylorus was intubated with visualization of the normal duodenal bulb and second and third part of the duodenum. Upon withdrawal and retroflexion, the incisura, cardia, and greater curve were examined and no additional findings were noted. The scope was then withdrawn into the distal esophagus. The entire esophageal mucosa was examined all the way up to Unit #: [id number] #: [id number] Patient: DULAK,SKY pharynx and no additional findings were noted. The patient tolerated the procedure without any postprocedure complications. Dictated by... Isa Husain TD: 12/10/2016 22:05 JOB #: [id number] CC: Isa Lieberman M.D. OPERATIVE REPORT Page 1 of 1 X Quincy Monique MD X PROCEDURE OPERATIVE NOTE
--- NOTE | ~2016-12-08 | US67 ---
[facility] A Service of [facility] RADIOLOGY TEXT RESULTS PATIENT: SKY FAJARDO LOCATION: [facility] 46- : 43 UNIT #: [id number] AGE: [address]: Timothy Callejas MD SEX: M ORDER DR: [id number] [facility] [address] [place], [place] [address] [id number] I MR#: [id number] Acc #: [id number] NAME: SKY FAJARDO : 1945 SEX: M STUDY DATE/TIME: 12/09/2016 8:32 [facility] [address] STUDY DESCRIPTION: US Gallbladder Attending Physician: Timothy Callejas M.D. Ordering Physician: Kehinde Love M.D. Primary Care Physician: Kirk Garcia M.D. MEDICAL IMAGING REPORT This report is preliminary unless electronic signature is present EXAM Gallbladder ultrasound, 12/09/2016. HISTORY Right upper quadrant abdominal pain and chest pain for 1 week. FINDINGS The liver is homogeneous in echotexture and demonstrates no cystic or solid mass lesions. The intrahepatic bile ducts are not dilated. The common duct is dilated to 8 mm, but no obstructing mass or calculus is seen. Clinical correlation is recommended. The gallbladder is normal with no evidence of cholelithiasis, wall thickening, or pericholecystic fluid. The pancreas is normal. The right kidney demonstrates cortical thinning and increased cortical echogenicity, characteristic of medical renal disease. Note is made of a small right pleural effusion. IMPRESSION 1. Normal gallbladder but there is mild dilatation of the common bile duct to 8 mm. No obstructing mass or calculus is seen. Clinical correlation is recommended. 2. The right kidney appears somewhat atrophic with cortical thinning. Right kidney measures 7.5 cm in greatest diameter. There is increased right renal cortical echogenicity characteristic of medical renal disease. 3. Right pleural effusion. Dictated by... Pedro Presley M.D. THIS IS AN ELECTRONICALLY VERIFIED REPORT Pedro Presley M.D. at 12/10/2016 8:04 AM [facility] A Service of [facility] RADIOLOGY TEXT RESULTS PATIENT: SKY FAJARDO LOCATION: [facility] 46- : 43 UNIT #: [id number] AGE: [address]: Timothy Callejas MD SEX: M ORDER DR: Bethany TD: 12/09/2016 09:39 JOB #: [id number] MEDICAL IMAGING REPORT Page 1 of 1 COPY
--- NOTE | ~2016-12-08 | CR72 ---
[facility] A Service of [facility] RADIOLOGY TEXT RESULTS PATIENT: SKY FAJARDO LOCATION: [facility] 4611-03 : 43 UNIT #: [id number] AGE: [address]: Timothy Callejas MD SEX: M ORDER DR: [id number] [address] [address] [id number] E MR#: [id number] Acc #: [id number] NAME: SKY FAJARDO : 1945 SEX: M STUDY DATE/TIME: 12/08/2016 22:22 UNIT: RAD[facility] ROOM: STUDY DESCRIPTION: CR Chest Single View Portable Attending Physician: Kehinde Love M.D. Ordering Physician: Kehinde Love M.D. Primary Care Physician: Kirk Garcia M.D. MEDICAL IMAGING REPORT This report is preliminary unless electronic signature is present EXAM Portable chest. INDICATION Chest pain for the past month. PROCEDURE Frontal view chest. COMPARISON 12/02/2016 FINDINGS Heart size not significantly changed. Persistent ill-defined opacity in the right lower lung zone with background of chronic parenchymal change. No pneumothorax. IMPRESSION 1. Persistent ill-defined opacity in the right lower lung zone. 2. Background chronic parenchymal change. Dictated by... Dennis Acharya M.D. THIS IS AN ELECTRONICALLY VERIFIED REPORT Dennis Acharya M.D. at 12/13/2016 7:30 AM EED/helder TD: 12/09/2016 01:32 JOB #: [id number] [facility] A Service of [facility] RADIOLOGY TEXT RESULTS PATIENT: SKY FAJARDO LOCATION: [facility] 4611-03 : 43 UNIT #: [id number] AGE: [address]: Timothy Callejas MD SEX: M ORDER DR: MEDICAL IMAGING REPORT Page 1 of 1 COPY
--- NOTE | ~2016-12-08 | DS ---
Unit #: [id number] #: [id number] Patient: SKY FAJARDO [id number] [address] [place], [place] [address] [id number] I MR#: [id number] NAME: SKY FAJARDO ROOM: 463 Age: 71 Sex: M Admission Date: 12/09/2016 : 1945 Discharge Date: 12/11/2016 Attending Physician: Timothy Callejas M.D. Primary Care Physician: Kirk Garcia M.D. DISCHARGE SUMMARY DISCHARGE DIAGNOSES 1. Nausea. 2. Vomiting. 3. End stage renal disease. 4. Recent pneumonia. 5. Interstitial pneumonia. 6. ANCA (antineutrophil cytoplasmic autoantibody) vasculitis. 7. Right upper quadrant pain. HOSPITAL COURSE The patient is a 71-year-old male who presented to [facility] emergency department on 12/09/16 secondary to some nausea and vomiting. It was apparently associated with right upper quadrant pain. He states that the symptoms had begun a couple of days prior to presentation. In the ED, the patient underwent gallbladder ultrasound which was noted to show a common bile duct dilatation to 8 mm. No mass or calculus was seen. The patient underwent HIDA scan which was noted to be normal. Given the symptoms, the patient was taken for EGD which did reveal retained foreign body which was thought to perhaps be barium. It was in the stomach. Otherwise, scope was normal. No direct cause for the patient's nausea or vomiting was found. It is possible that this was secondary to his Augmentin use to treat his Klebsiella pneumonia for which he was discharged on December 05. The patient continued to complain of right upper quadrant pain. Was indeed tender to palpation. However, the patient did also note tenderness to palpation in his ribs and upper chest. He states that pressure on his chest wall reproduced his symptoms and that it was made worse by coughing or sneezing. I question whether this is some costochondritis secondary to the patient's recent bout of pneumonia and significant cough. Also of note, the patient's admission Med Rec does not show that the patient was taking prednisone with which he had been discharged four days prior. This was initially prescribed given the patient's interstitial nephritis after discussion with the patient's high rigger, Dr. Orozco. The patient should follow up with the pulmonary office as soon as possible. Given no acute finings and the fact that the patient's nausea and vomiting has now resolved, he is being discharged home at this time. DISCHARGE MEDICATIONS 1. Combivent Respimat, one puff q.i.d. Unit #: [id number] #: [id number] Patient: TANA,SKY 2. Zofran 4 mg p.o. q.4 hours p.r.n. 3. Pepcid 20 mg p.o. b.i.d. 4. Finasteride 5 mg p.o. daily. 5. Singulair 10 mg daily. 6. Tylenol with codeine #3, one p.o. q.4 hours p.r.n. 7. Levoxyl 200 mcg p.o. daily. 8. Vitamin B12 1000 mcg p.o. daily. 9. Mei-Inocencia vitamin daily. 10. Levaquin 250 mg p.o. daily x3 days. 11. Prednisone 40 mg p.o. daily. FOLLOWUP As mentioned above, the patient should follow with Dr. Faustin as soon as possible. Dictated by... Isa Lieberman/cande TD: 12/13/2016 07:45 JOB #: [id number] DISCHARGE SUMMARY Page 1 of 1 X Timothy Callejas MD X DISCHARGE SUMMARY
--- NOTE | ~2016-12-08 | HP ---
Unit #: [id number] #: [id number] Patient: SKY FAJARDO [id number] [address] [address] [id number] I MR#: [id number] NAME: SKY FAJARDO ROOM: 17246 Age: 71 Sex: M Admission Date: 12/09/2016 : 1945 Attending Physician: Kiki Deng M.D. Primary Care Physician: Kirk Garcia M.D. HISTORY AND PHYSICAL CHIEF COMPLAINT Intractable nausea and vomiting. HISTORY This very pleasant 76-year-old male with endstage renal failure, COPD, is admitted for intractable nausea and vomiting. Patient was most recently admitted to this facility 12/02 through 12/05/2016 for a healthcare-associated pneumonia and COPD exacerbation. His sputum grew out Klebsiella and he was sent home on Augmentin. States that over the past several days he has intractable nonbloody nausea and vomiting. Does make mention of upper abdominal pain. No diarrhea with the above, and no fevers, sweats or chills. He was seen in this emergency department early yesterday morning and returned last evening due to continued symptoms. Was treated with a bolus of saline and a dose of morphine. Did receive his dialysis yesterday. On examination, patient has mild tenderness in the epigastric region. He had a CT scan performed about a month ago only showing abnormalities of the kidneys. PAST MEDICAL HISTORY 1. Admission for hematuria last month then transferred to [facility] for a lung biopsy. 2. History of ANCA vasculitis. 3. Endstage renal failure on dialysis followed by [facility] with dialysis Mondays, Wednesdays and Fridays. Last dialysis was yesterday. 4. Admission last week for healthcare-associated pneumonia and COPD exacerbation. Sputum cultures are positive for Klebsiella. Patient is followed by Dr. Faustin. 5. COPD. 6. Chronic anemia. 7. BPH. 8. Hypothyroidism. 9. Avascular necrosis of the left hip. 10. Exploratory abdominal surgery. 11. Left upper arm shunt for dialysis. 12. Lung biopsy. 13. Cystoscopy. ALLERGIES Ibuprofen. HOME MEDICATIONS 1. Singulair 10 mg daily 2. Proscar 5 mg daily Unit #: [id number] #: [id number] Patient: DULAK,SKY 3. Tylenol #3 q.4 hours as needed 4. Synthroid 0.2 mg daily 5. Mei-Inocencia daily 6. Combivent q.i.d. p.r.n. 7. Vitamin B12 1,000 mcg daily 8. Augmentin 875 mg b.i.d. FAMILY HISTORY Uncertain, patient was orphaned at age 18 months. He is a relative of [place]. SOCIAL HISTORY The patient is a former smoker but stopped smoking 16 years ago. He lives with his fiancee and daughter. Occasionally uses alcohol. REVIEW OF SYSTEMS Notable for abdominal discomfort, recent pneumonia, intractable nausea and vomiting, renal failure, COPD, BPH, anemia, hypothyroidism, avascular necrosis of the left hip, above-mentioned surgeries. All other systems were reviewed and are negative. PHYSICAL EXAMINATION GENERAL: Pleasant, young-appearing 71-year-old thin male currently in no acute distress. VITAL SIGNS: Temperature 98.1, pulse 69, respirations 16, blood pressure 103/58, O2 saturation 94% on room air. HEENT EXAMINATION: Eyes PERRLA. Extraocular muscles are intact. Pharynx is benign. NECK: Supple without adenopathy or thyromegaly. CHEST: Clear. CARDIAC: Normal S1, S2 without definite murmur. ABDOMEN: Bowel sounds are present. Patient is mildly tender in the epigastric region without rebound guarding. No hepatosplenomegaly or masses. EXTREMITIES: There is a left upper arm dialysis shunt with good thrill and good bruit. No pedal edema. Pedal pulses are present. Patient has diminished movement of the left leg due to pain in the left hip. NEUROLOGIC EXAM: Patient is awake, alert, oriented. Cranial nerves are intact. Equal strength throughout. DIAGNOSTIC STUDIES ADMISSION LABORATORY: Hematocrit is 36 (which is stable), white blood count is 14.3, platelet count is 126. SMA-12: Creatinine 3.4, chloride 96, albumin 3.1, AST 44, ALT 45, alk phos 372, normal lipase. Negative cardiac markers. CARDIOLOGY: EKG - Sinus tachycardia, rate 120, nonspecific ST wave abnormalities inferiorly. ASSESSMENT 1. Intractable nausea and vomiting with increasing alkaline phosphatase and abdominal discomfort. CT scan done a month ago only really showed abnormality of the kidneys. 2. Endstage renal failure on hemodialysis Mondays, Wednesdays and Fridays via [facility]. Patient does have a history of ANCA-positive Unit #: [id number] #: [id number] Patient: DULAK,SKY vasculitis. 3. Recent Klebsiella pneumonia on Augmentin with underlying chronic obstructive pulmonary disease. 4. Benign prostatic hypertrophy. 5. Chronic macrocytic anemia. 6. Avascular necrosis of the left hip. 7. Hypothyroidism. PLANS 1. Gallbladder ultrasound. If the gallbladder ultrasound is negative, would ask GI to see in consultation. 2. Zofran, H2 blockers. 3. Change Augmentin to Rocephin in case the Augmentin is contributing to the patient's nausea. 4. SCDs for DVT prophylaxis. 5. Recheck labs in the morning. Dictated by Kiki Deng M.D. AML/psc TD: 12/09/2016 03:10 JOB #: [id number] CC: Kirk Garcia M.D. HISTORY AND PHYSICAL Page 1 of 1 X Kiki Deng MD X HISTORY AND PHYSICAL
--- NOTE | ~2016-12-08 | NM22 ---
[facility] A Service [facility] RADIOLOGY TEXT RESULTS PATIENT: SKY FAJARDO LOCATION: [place] [address]- : 43 UNIT #: [id number] AGE: [address]: Timothy Callejas MD SEX: M ORDER DR: [id number] [facility]. [place], [place] [address] [id number] I MR#: [id number] Acc #: [id number] NAME: SKY FAJARDO : 1945 SEX: M STUDY DATE/TIME: 12/10/2016 12:09 UNIT: [facility] ROOM: [facility] STUDY DESCRIPTION: NM Hepatobiliary W GB Pharm Attending Physician: Timothy Callejas M.D. Ordering Physician: Quincy Monique M.D. Primary Care Physician: Kirk Garcia M.D. MEDICAL IMAGING REPORT This report is preliminary unless electronic signature is present EXAM HIDA scan with Kinevac CCK. DATE OF EXAM 12/10/2016 HISTORY Right upper quadrant abdominal pain with nausea and vomiting for 6 weeks, worsening. Abdominal bloating and belching for the past week. FINDINGS The patient received an intravenous injection of 5.92 mCi of technetium 99m tagged Choletec for hepatobiliary imaging. 1 hour following the injection of the radiopharmaceutical, the patient received an intravenous injection of 1.4 mcg of Kinevac. There is homogeneous distribution of the radiotracer throughout the liver. Gallbladder activity was seen by 15 minutes postinjection of the radiopharmaceutical. Following Kinevac injection, the gallbladder ejection fraction was 54.7% (normal is greater than 30%). IMPRESSION Normal HIDA scan with gallbladder ejection fraction of 54.7%. Dictated by... Pedro Presley M.D. THIS IS AN ELECTRONICALLY VERIFIED REPORT Pedro Presley M.D. at 12/10/2016 4:42 PM TAYLOR/tianna TD: 12/10/2016 15:36 [facility] A Service [facility] RADIOLOGY TEXT RESULTS PATIENT: SKY FAJARDO LOCATION: [facility] 46- : 43 UNIT #: [id number] AGE: [address]: Timothy Callejas MD SEX: M ORDER DR: JOB #: [id number] MEDICAL IMAGING REPORT Page 1 of 1 COPY
[2016-12-08 22:23] LABS: BASOPHIL# 0.1 X10e3 (0-0.3); EOSINOPHIL# 0.2 X10e3 (0-0.7); EOSINOPHIL% 1.1 % (0.0-7.0); HEMATOCRIT 35.9 % (38.0-50.0); HEMOGLOBIN 11.8 gm/dL (13.0-16.0); LYMPHOCYTE# 0.4 X10e3 (1.0-3.5); LYMPHOCYTE% 3.1 % (17.0-45.0); MEAN CELL VOLUME 102.9 FL (83-96); MEAN CORPUSCULAR HEMOGLOBIN 33.7 PG (28-34); MEAN CORPUSCULAR HGB CONC 32.8 g/dL (30-36); MEAN PLATELET VOLUME 7.9 FL (6.5-11.5); MONOCYTE# 0.7 X10e3 (0-1.0); MONOCYTE% 4.8 % (3.0-12.0); NEUTROPHIL# 12.8 X10e3 (1.5-7.1); PLATELET COUNT 126 X10e3 (140-420); RED BLOOD COUNT 3.49 X10e (3.90-5.60); RED CELL DISTRIBUTION WIDTH 17.6 % (11.0-15.5); WHITE BLOOD COUNT 14.3 X10e3 (4.0-10.5)
[2016-12-08 22:24] LABS: DIFF IND NO
[2016-12-08 22:32] LABS: POC - CKMB <1.0 ng/mL (0.0-7.9); POC - TROPONIN <0.05 ng/mL (<=0.05)
[~2016-12-08 22:32] MED LIST changes: +ALBUTEROL20 ml INH; +AUGMENTIN875 M1 PO; +COMBIVENT RESPIM4 GM INH; +FINASTERIDE5 MG PO; +LEVOXYL200 MC1 PO; +PREDNISONE10 MG/DOSE PO; +RENAL-VITE TAB0.8 MG PO; +TYLENOL #3 PO; +VITAMIN B122500 MCG PO
[2016-12-08 22:43] LABS: ALBUMIN SERUM 3.1 g/dL (3.5-5.0); BILIRUBIN, DIRECT 0.3 mg/dL (0.0-0.2); BILIRUBIN,INDIRECT 0.8 mg/dL (0.0-0.9); BILIRUBIN,TOTAL 1.1 mg/dL (0.2-2.0); BUN/CREATININE RATIO 5.88; CALCIUM SERUM 8.4 mg/dL (8.4-10.2); GLOM FILT RATE Estimated 16.9 mL/min (>60); POTASSIUM 3.6 mmol/L (3.5-5.1)
[2016-12-08 22:44] LABS: CREATININE SERUM 3.4 mg/dL (0.6-1.4)
[2016-12-09 02:13] LABS: POC - CKMB <1.0 ng/mL (0.0-7.9); POC - TROPONIN <0.05 ng/mL (<=0.05)
[2016-12-09 10:15] LABS: ALBUMIN SERUM 2.5 g/dL (3.5-5.0); BILIRUBIN,TOTAL 0.6 mg/dL (0.2-2.0); BUN/CREATININE RATIO 5.86; CALCIUM SERUM 7.8 mg/dL (8.4-10.2); CREATININE SERUM 4.6 mg/dL (0.6-1.4); GLOM FILT RATE Estimated 11.7 mL/min (>60); POTASSIUM 3.8 mmol/L (3.5-5.1); PROTEIN TOTAL SERUM 5.7 g/dL (6.0-8.3)
[2016-12-09 11:45] LABS: BASOPHIL# 0.1 X10e3 (0-0.3); BASOPHIL% 0.4 % (0-2.5); EOSINOPHIL# 0.3 X10e3 (0-0.7); EOSINOPHIL% 2.3 % (0.0-7.0); HEMATOCRIT 30.1 % (38.0-50.0); LYMPHOCYTE# 1.1 X10e3 (1.0-3.5); LYMPHOCYTE% 7.8 % (17.0-45.0); MEAN CELL VOLUME 102.3 FL (83-96); MEAN CORPUSCULAR HEMOGLOBIN 33.6 PG (28-34); MEAN CORPUSCULAR HGB CONC 32.9 g/dL (30-36); MEAN PLATELET VOLUME 7.8 FL (6.5-11.5); MONOCYTE# 1.1 X10e3 (0-1.0); MONOCYTE% 7.5 % (3.0-12.0); NEUTROPHIL# 11.8 X10e3 (1.5-7.1); RED BLOOD COUNT 2.94 X10e (3.90-5.60); RED CELL DISTRIBUTION WIDTH 17.6 % (11.0-15.5); WHITE BLOOD COUNT 14.4 X10e3 (4.0-10.5)
[2016-12-09 12:05] LABS: HEMOGLOBIN 9.9 gm/dL (13.0-16.0)
[2016-12-09 12:06] LABS: DIFF IND YES; PLATELET COUNT 98 X10e3 (140-420)
[2016-12-09 12:12] LABS: PLATELET ESTIMATE DECREASED (NORMAL)
[2016-12-09 12:13] LABS: ANISOCYTOSIS MOD
[2016-12-10 02:57] LABS: HEMATOCRIT 25.9 % (38.0-50.0); HEMOGLOBIN 8.8 gm/dL (13.0-16.0); MEAN CELL VOLUME 101.5 FL (83-96); MEAN CORPUSCULAR HEMOGLOBIN 34.6 PG (28-34); MEAN CORPUSCULAR HGB CONC 34.1 g/dL (30-36); MEAN PLATELET VOLUME 7.5 FL (6.5-11.5); RED BLOOD COUNT 2.55 X10e (3.90-5.60); RED CELL DISTRIBUTION WIDTH 17.4 % (11.0-15.5); WHITE BLOOD COUNT 9.6 X10e3 (4.0-10.5)
[2016-12-10 03:16] LABS: BUN/CREATININE RATIO 5.96; CALCIUM SERUM 7.4 mg/dL (8.4-10.2); CREATININE SERUM 5.7 mg/dL (0.6-1.4); GLOM FILT RATE Estimated 9.1 mL/min (>60); POTASSIUM 3.7 mmol/L (3.5-5.1)
[2016-12-10 08:49] LABS: INR 1.1; PROTHROMBIN TIME (PATIENT) 11.2 SECONDS (9.6-11.5)
[2016-12-11 10:17] LABS: HEMATOCRIT 27.4 % (38.0-50.0); HEMOGLOBIN 9.2 gm/dL (13.0-16.0); MEAN CELL VOLUME 101.5 FL (83-96); MEAN CORPUSCULAR HEMOGLOBIN 34.1 PG (28-34); MEAN CORPUSCULAR HGB CONC 33.6 g/dL (30-36); MEAN PLATELET VOLUME 7.9 FL (6.5-11.5); RED BLOOD COUNT 2.7 X10e (3.90-5.60); RED CELL DISTRIBUTION WIDTH 17.2 % (11.0-15.5); WHITE BLOOD COUNT 8.2 X10e3 (4.0-10.5)
[2016-12-11 10:51] LABS: BUN/CREATININE RATIO 5.76; CALCIUM SERUM 7.8 mg/dL (8.4-10.2); CREATININE SERUM 7.8 mg/dL (0.6-1.4); GLOM FILT RATE Estimated 6.2 mL/min (>60); POTASSIUM 4.3 mmol/L (3.5-5.1)
[2016-12-11] MEDS ORDERED: ACID REDUCER20 MG PO (12:13)
[2016-12-11] MEDS ORDERED: ZOFRAN PO (12:14)
[2016-12-11] MEDS ORDERED: PREDNISONE10 MG PO (12:16)
[2016-12-11] MEDS ORDERED: LEVAQUIN250 MG PO (12:18)
== END 2016-12-11 21:30 | disposition home or self-care (01) | DRG 391 ==
LOC: CED 22:32 → CEDOF 12-09 01:45 → C4C 12-09 15:30
PROVIDERS: Emergency Medicine; Internal Medicine; Internal Medicine Gastroenterology; Physician Assistant Medical
PROC: 0DJ08ZZ Inspection of Upper Intestinal Tract, Via Natural or Artificial Opening Endoscopic (ICD-10-PCS; principal; 2016-12-10 16:11)
PROC: 5A1D00Z (ICD-10-PCS; 2016-12-11)
DX: R10.11 Right upper quadrant pain (principal); N18.6 End stage renal disease; J15.0 Pneumonia due to Klebsiella pneumoniae; J44.9 Chronic obstructive pulmonary disease, unspecified; D53.9 Nutritional anemia, unspecified; M87.852 Other osteonecrosis, left femur; I77.6 Arteritis, unspecified; N12 Tubulo-interstitial nephritis, not specified as acute or chronic; R11.2 Nausea with vomiting, unspecified; Z99.2 Dependence on renal dialysis; N40.0 Benign prostatic hyperplasia without lower urinary tract symptoms; E03.9 Hypothyroidism, unspecified; R74.8 Abnormal levels of other serum enzymes; K83.8 Other specified diseases of biliary tract
CPT/HCPCS: 36415; 71010; 76705; 78227; 80048; 80053; 80076; 82150; 82308; 82553; 83605; 83690; 83735; 84484; 85025; 85027; 85610; 87040; 93005; 94640; 94760; 96361; 96374; 99284; 99285; A9537; J0696; J1644; J1956; J2250; J2270; J2405; J2550; J2805

== ENCOUNTER 2017-02-27 15:32 | Inpatient (IN) | payer MEDICARE, OTHER ==
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
--- NOTE | ~2017-02-27 | XA203 ---
[facility] A Service of [facility] & [facility] RADIOLOGY TEXT RESULTS PATIENT: SKY FAJARDO LOCATION: [facility] 568-01 : 43 UNIT #: [id number] AGE: [address]: Yaa Morris MD SEX: M ORDER DR: [id number] [facility] [address] [facility]. [place], [place] [address] [id number] I MR#: [id number] Acc #: [id number] NAME: SKY FAJARDO : 1945 SEX: M STUDY DATE/TIME: 03/01/2017 7:40 UNIT: [facility] ROOM: [facility] STUDY DESCRIPTION: XA Thoracentesis Attending Physician: Yaa Morris M.D. Ordering Physician: Lindsay Orozco M.D. Primary Care Physician: Kirk Garcia M.D. MEDICAL IMAGING REPORT This report is preliminary unless electronic signature is present EXAM Left thoracentesis HISTORY Bilateral pleural effusions. PROCEDURE Patient is referred for thoracentesis or large pleural effusion. Ultrasound examination shows a large effusion on the left. An appropriate site was chosen under ultrasound. The skin was marked. Skin was then prepped with chlorhexidine and sterilely draped. Under local anesthesia, a 5-Japanese catheter was inserted and 1700 mL of fluid was removed. Followup chest radiograph shows no pneumothorax. The procedure was very well tolerated. A single permanent ultrasound image was recorded. CONCLUSION 1. Successful left thoracentesis with removal of 1700 mL of fluid. Dictated by... Albert Avelar M.D. THIS IS AN ELECTRONICALLY VERIFIED REPORT Albert Avelar M.D. at 03/01/2017 3:38 PM DAVID/anahi TD: 03/01/2017 14:03 JOB #: [id number] MEDICAL IMAGING REPORT Page 1 of 1 COPY
--- NOTE | ~2017-02-27 | XA203 ---
[facility] A Service of [facility] RADIOLOGY TEXT RESULTS PATIENT: SKY FAJARDO LOCATION: [facility] 568-01 : 43 UNIT #: [id number] AGE: [address]: Yaa Morris MD SEX: M ORDER DR: [id number] [place] [id number] [facility]. [place], [place] [address] [id number] I MR#: [id number] Acc #: [id number] NAME: SKY FAJARDO : 1945 SEX: M STUDY DATE/TIME: 03/02/2017 8:28 UNIT: [facility] ROOM: [facility] STUDY DESCRIPTION: XA Thoracentesis Attending Physician: Yaa Morris M.D. Ordering Physician: Lindsay Orozco M.D. Primary Care Physician: Kirk Garcia M.D. MEDICAL IMAGING REPORT This report is preliminary unless electronic signature is present EXAM Ultrasound of the right hemithorax. INDICATION Bilateral pleural effusions. PROCEDURE Risks, benefits, and alternatives to the procedure were explained to the patient, and signed informed consent was obtained. He was seated in the upright position. Preliminary ultrasound of the right hemithorax was performed which demonstrated essentially no right pleural fluid. Procedure was subsequently terminated. IMPRESSION Insufficient volume of fluid for thoracentesis. Dictated by... Regina Harrell M.D. THIS IS AN ELECTRONICALLY VERIFIED REPORT Regina Harrell M.D. at 03/07/2017 5:23 PM AFF/tmw TD: 03/03/2017 10:12 JOB #: [id number] MEDICAL IMAGING REPORT Page 1 of 1 COPY
--- NOTE | ~2017-02-27 | EKG ---
PATIENT: SKY FAJARDO UNIT #: [id number] Ventricular Rate: 88 BPM Atrial Rate: 88 BPM P-R Interval: 162 ms QRS Duration: 104 ms Q-T Interval: 424 ms QTC Calculation(Bezet): 513 ms P Palermo: 27 degrees Calculated R Palermo: 22 degrees Calculated T Palermo: 94 degrees Diagnosis Line: Normal sinus rhythm Diagnosis Line: ST and T wave abnormality, consider lateral ischemia Diagnosis Line: Prolonged QT Diagnosis Line: Abnormal ECG Diagnosis Line: When compared with ECG of 27-FEB-2017 16:31, Diagnosis Line: T wave inversion now evident in Anterior leads Diagnosis Line: Confirmed by ASHLEY PAYTON MD ([id number]) on Diagnosis Line: 03/02/2017 10:51:05 AM INTERPRETING MD: FABIO
--- NOTE | ~2017-02-27 | CR72 ---
[facility] A Service of [facility] RADIOLOGY TEXT RESULTS PATIENT: SKY FAJARDO LOCATION: [facility] [place] [facility] : 43 UNIT #: [id number] AGE: [address]: Yaa Morris MD SEX: M ORDER DR: [id number] [facility] [address] [facility]. [place], [place] [address] [id number] I MR#: [id number] Acc #: [id number] NAME: SKY FAJARDO : 1945 SEX: M STUDY DATE/TIME: 02/27/2017 16:28 UNIT: [facility] [place] [facility] ROOM: [facility] STUDY DESCRIPTION: CR Chest Single View Portable Attending Physician: Elsy Avila M.D. Ordering Physician: Kehinde Love M.D. Primary Care Physician: Kirk Garcia M.D. MEDICAL IMAGING REPORT This report is preliminary unless electronic signature is present EXAM Portable chest HISTORY Shortness of air beginning this morning. History of asthma. COMPARISON 12/08/2016 FINDINGS Examination demonstrates diffuse lung disease with increasing parenchymal opacity right mid and right lower lung zones and also left lower lung zones. This could represent multifocal pneumonia or edema. There are bilateral pleural effusions, which are new or increased from December 2016. Heart size within normal limits. Mediastinum, great vessels unremarkable except for minimal aortic atherosclerotic changes. Vascular stent is seen in the left axillary region. IMPRESSION Extensive bilateral parenchymal opacities may represent a combination of interstitial and alveolar edema, and there is interval development of vjzet-rq-camzltks bilateral pleural effusions. One would question whether this could be related to fluid overload. Correlate clinically. Dictated by... Juan C Baires M.D. THIS IS AN ELECTRONICALLY VERIFIED REPORT Juan C Baires M.D. at 02/28/2017 1:17 PM JMS/psc [facility] A Service of [facility] & [facility] / [facility] RADIOLOGY TEXT RESULTS PATIENT: SKY FAJARDO LOCATION: [facility] [place] [facility] : 43 UNIT #: [id number] AGE: [address]: Yaa Morris MD SEX: M ORDER DR: TD: 02/27/2017 17:21 JOB #: [id number] MEDICAL IMAGING REPORT Page 1 of 1 COPY
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
--- NOTE | ~2017-02-27 | CR71 ---
[facility] A Service of [facility] & [facility] RADIOLOGY TEXT RESULTS PATIENT: KSY FAJARDO LOCATION: [facility] 568-01 : 43 UNIT #: [id number] AGE: [address]: Yaa Morris MD SEX: M ORDER DR: [id number] [facility] [address]. [place], [place] [address] [id number] I MR#: [id number] Acc #: [id number] NAME: SKY FAJARDO : 1945 SEX: M STUDY DATE/TIME: 03/01/2017 8:33 UNIT: [facility] ROOM: [facility] STUDY DESCRIPTION: CR Chest Single View Attending Physician: Yaa Morris M.D. Ordering Physician: Albert Avelar M.D. Primary Care Physician: Kirk Garcia M.D. MEDICAL IMAGING REPORT This report is preliminary unless electronic signature is present EXAM AP chest radiograph HISTORY Status post left thoracentesis FINDINGS An AP view is obtained. There has been drainage of left-sided pleural fluid collection with reexpansion of the left lung. There is no pneumothorax. The right lung is unchanged again with a moderate-sized pleural effusion. There continues to be evidence of interstitial fibrosis and underlying pulmonary edema. Cardiac size is enlarged. CONCLUSION Interim left thoracentesis with no pneumothorax identified post thoracentesis. STAT * RESULT Dictated by... Albert Avelar M.D. THIS IS AN ELECTRONICALLY VERIFIED REPORT Albert Avelar M.D. at 03/01/2017 3:38 PM Get TD: 03/01/2017 08:54 JOB #: [id number] MEDICAL IMAGING REPORT Page 1 of 1 COPY
--- NOTE | ~2017-02-27 | CR72 ---
[facility] A Service of [facility] RADIOLOGY TEXT RESULTS PATIENT: SKY FAJARDO LOCATION: [facility] 568-01 : 43 UNIT #: [id number] AGE: [address]: Yaa Morris MD SEX: M ORDER DR: [id number] [facility] [address] [facility]. [place], [place] [address] [id number] I MR#: [id number] Acc #: [id number] NAME: SKY FAJARDO : 1945 SEX: M STUDY DATE/TIME: 03/02/2017 5:48 UNIT: [facility] ROOM: [facility] STUDY DESCRIPTION: CR Chest Single View Portable Attending Physician: Yaa Morris M.D. Ordering Physician: Lindsay Orozco M.D. Primary Care Physician: Kirk Garcia M.D. MEDICAL IMAGING REPORT This report is preliminary unless electronic signature is present EXAM Single view chest INDICATION Shortness of air and cough. Recent thoracentesis. FINDINGS Single portable AP view of the chest compared to 03/01/2017. Heart and mediastinal contours are unchanged. There is decreased size of the right pleural effusion status post thoracentesis. There is a questionable line in the right hemithorax which appears to be a skin fold as there are some pulmonary interstitial markings beyond the apparent line. The line is also incomplete further supporting evidence of a skin fold. I would recommend a follow up chest radiograph to confirm, however. IMPRESSION 1. Decreased size of the right pleural effusion status post thoracentesis. 2. Presumed skin fold causing a line in the right hemithorax. This does not appear to be a pneumothorax as there are some interstitial markings beyond the finding. However, given the recent procedure, I would recommend a follow up chest radiograph to confirm. Dictated by... Kimo Rosas M.D. THIS IS AN ELECTRONICALLY VERIFIED REPORT Kimo Rosas M.D. at 03/02/2017 1:29 PM VIV/henrique TD: 03/02/2017 09:18 JOB #: [id number] [facility] A Service of [facility] RADIOLOGY TEXT RESULTS PATIENT: SKY FAJARDO LOCATION: [facility] 568-01 : 43 UNIT #: [id number] AGE: [address]: Yaa Morris MD SEX: M ORDER DR: MEDICAL IMAGING REPORT Page 1 of 1 COPY
--- NOTE | ~2017-02-27 | EKG ---
PATIENT: SKY FAJARDO UNIT #: [id number] Ventricular Rate: 110 BPM Atrial Rate: 110 BPM P-R Interval: 168 ms QRS Duration: 106 ms Q-T Interval: 360 ms QTC Calculation(Bezet): 487 ms P York: 53 degrees Calculated R York: 18 degrees Calculated T York: 95 degrees Diagnosis Line: Sinus tachycardia Diagnosis Line: Possible Left atrial enlargement Diagnosis Line: Nonspecific ST and T wave abnormality Diagnosis Line: Abnormal ECG Diagnosis Line: When compared with ECG of 08-DEC-2016 21:02, Diagnosis Line: Questionable change in QRS axis Diagnosis Line: Nonspecific T wave abnormality no longer evident Diagnosis Line: in Inferior leads Diagnosis Line: T wave inversion now evident in Lateral leads Diagnosis Line: Confirmed by ASHLEY PAYTON MD ([id number]) on Diagnosis Line: 02/27/2017 10:56:53 PM INTERPRETING MD: FABIO
--- NOTE | ~2017-02-27 | HP ---
Unit #: [id number] #: [id number] Patient: SKY FAJARDO [id number] [address] [address] [id number] I MR#: [id number] NAME: SKY FAJARDO ROOM: 14815 Age: 71 Sex: M Admission Date: 02/27/2017 : 1945 Attending Physician: Elsy Avila M.D. Primary Care Physician: Kirk Garcia M.D. HISTORY AND PHYSICAL CHIEF COMPLAINT Shortness of breath. HISTORY OF PRESENT ILLNESS The patient is a 71-year-old male with a past medical history of end-stage renal disease, COPD, ANCA vasculitis, chronic anemia, BPH, and hypothyroidism, who presented to the emergency department for evaluation of the above. The patient has had worsening shortness of breath since 2 a.m. The patient states that it kept him from sleep. He denies any fever. He has had productive cough. He denies any chest pain and no swelling in his legs. He has had nausea. He denies any diarrhea. In the emergency department, temperature was 98.7, pulse 112, and oxygen saturation 97% on room air. A chest x-ray was done and showed bilateral opacities concerning for edema with small to moderate bilateral pleural effusions. He is being admitted to [facility] for evaluation and further treatment. PAST MEDICAL HISTORY 1. Admission to [facility] December 09-2016, for nausea and vomiting. 2. ANCA vasculitis. 3. End-stage renal disease, on dialysis, followed by [facility], with dialysis Tuesday/Tuesday/Tuesday. Last dialysis was February 25, 2017. 4. Chronic obstructive pulmonary disease followed by Dr. Faustin, not on home oxygen. 5. Chronic anemia. 6. Benign prostatic hypertrophy. 7. Hypothyroidism. 8. Avascular necrosis of the left hip. PAST SURGICAL HISTORY 1. Exploratory abdominal surgery. 2. Left upper extremity shunt for dialysis. 3. Lung biopsy. 4. Cystoscopy. SOCIAL HISTORY The patient is a former smoker. He reports occasional alcohol use. He lives with his fiance. Unit #: [id number] #: [id number] Patient: SKY FAJARDO FAMILY HISTORY Unknown. He was orphaned at 18 months. ALLERGIES Cipro. HOME MEDICATIONS Per the Discharge Summary from December 11, 2016, include: 1. Combivent 1 puff q.i.d. 2. Zofran 4 mg q.4 hours p.r.n. 3. Pepcid 20 mg b.i.d. 4. Finasteride 5 mg daily. 5. Singulair 10 mg daily. 6. Tylenol with codeine No. 3 q.4 hours p.r.n. 7. Levoxyl 200 mcg daily. 8. Vitamin B12 at 1000 mcg daily. 9. Mei-Inocencia daily. Home medications will need to be reviewed and verified. REVIEW OF SYSTEMS A complete review of systems is negative except as indicated in the History of Present Illness. The patient apparently saw Dr. Faustin within the past week. He denies currently being steroids. He has not had any antibiotics within the past month. PHYSICAL EXAMINATION VITAL SIGNS: Temperature is 98.7, pulse 112, respirations 16, blood pressure 149/93, and oxygen saturation is 97% on room air. GENERAL: Patient is awake, alert, and in no acute distress. HEENT: Head is atraumatic. Mucous membranes are moist. NECK: Supple. Trachea is midline. CARDIOVASCULAR: Regular rate and rhythm. LUNGS: Bibasilar crackles. Breathing is not labored. ABDOMEN: Soft and nontender with bowel sounds present in all four quadrants. EXTREMITIES: Patient does have a left upper extremity fistula. NEUROLOGIC: Patient is awake and alert. He follows commands. PSYCHIATRIC: Mood and affect are normal. Patient is cooperative. SKIN: Skin of examined areas is warm and dry. DIAGNOSTIC STUDIES LABORATORY: Complete blood count notable for white blood cell count of 11.6, hemoglobin and hematocrit 10.6 and 32.6, respectively, and platelets are 119,000. INR is 1. BNP is 2819. Comprehensive metabolic panel notable for potassium of 3.1, BUN and creatinine 23 and 5.5, respectively, calcium 8.2, alkaline phosphatase 419, and albumin 3.1. Amylase and lipase are normal. Magnesium is 1.9. Lactic acid 1.4. IMAGING: Chest x-ray shows bilateral opacities concerning for edema with small to moderate bilateral pleural effusions. CARDIOLOGY: EKG shows sinus tachycardia with a rate of 110 beats per minute. ASSESSMENT The patient is a 71-year-old male with: 1. Dyspnea likely multifactorial in etiology. Unit #: [id number] #: [id number] Patient: DULAK,SKY 2. Congestive heart failure. I do not see that the patient has had an echocardiogram. 3. Bilateral pleural effusions. 4. End-stage renal disease, on dialysis, with last dialysis being February 25, 2017. He is followed by [facility]. 5. Hypokalemia. 6. Antineutrophil cytoplasmic antibodies vasculitis. 7. Chronic obstructive pulmonary disease followed by Dr. Faustin. 8. Chronic anemia. The patient's hemoglobin was 9.2 on December 11, 2016. It is 10.6 today. 9. Benign prostatic hypertrophy. 10. Hypothyroidism. 11. History of avascular necrosis of the left hip. 12. Former smoker. PLAN 1. Admit to intermediate level. 2. A two gram sodium, 1800 mL fluid-restricted, renal diet. 3. Supplemental oxygen 2-4 liters to maintain saturations greater than 92%. 4. DuoNebs q.4 hours p.r.n. 5. Strict I/Os. 6. Daily weights. 7. Serial cardiac enzymes. 8. A 2D echo if not done within the past year. 9. Consult Dr. Faustin regarding dyspnea and COPD. 10. Consult [facility] regarding end-stage renal disease and dialysis needs. I will defer to them regarding diuresis. 11. Replace potassium (20 mEq p.o. x1 now). 12. Check urinalysis with culture and sensitivity. 13. Repeat labs in the morning. 14. SCDs for DVT prophylaxis. 15. Additional workup and consultants based on above. 1. Dictated by Isa Hoffman/zachery TD: 02/27/2017 20:00 JOB #: [id number] HISTORY AND PHYSICAL Page 1 of 1 X Elsy Avila MD HISTORY AND PHYSICAL
--- NOTE | ~2017-02-27 | DS ---
Unit #: [id number] #: [id number] Patient: SKY FAJARDO [id number] [address] [address] [id number] I MR#: [id number] NAME: SKY FAJARDO ROOM: 568 Age: 71 Sex: M Admission Date: 02/27/2017 : 1945 Discharge Date: Attending Physician: Yaa Morris M.D. Primary Care Physician: Kirk Garcia M.D. DISCHARGE SUMMARY DISCHARGE DIAGNOSES 1. Acute hypoxic respiratory failure. 2. Acute systolic heart failure with ejection fraction 10% to 15%. 3. Moderate to severe mitral regurgitation. 4. Small pericardial effusion. 5. Bilateral pleural effusion. 6. End-stage renal disease, on hemodialysis. 7. Hypertension. 8. Hypokalemia. 9. Paroxysmal supraventricular tachycardia. 10. Coronary artery disease, status post catheterization with 90% stenosis post left ventricular branch of right coronary artery, medically treated. 11. History of antineutrophil cytoplasmic antibody vasculitis. 12. Chronic obstructive pulmonary disease. 13. Chronic anemia likely from chronic kidney disease. 14. Benign prostatic hypertrophy. 15. Hypothyroidism. 16. History of avascular necrosis of the left hip. 17. Former smoker. 18. Hyponatremia. 19. Hypocalcemia. 20. Moderate protein malnutrition. CONSULTATIONS 1. Dr. Durand. 2. Dr. Alonso. PROCEDURES 1. Patient had a cardiac catheterization which shows 90% stenosis post LV branch of RCA, medically treated. 2. Thoracentesis. DIAGNOSTIC STUDIES LABORATORY: Glucose 100, sodium 134, potassium 3.3, creatinine 5.6, and calcium 7.5. WBC 10.1, hemoglobin 8.3, and platelets 130,000. Fluid cultures negative. Urine cultures pending. Blood cultures negative. IMAGING: X-ray of the chest shows interstitial coarsening is similar. No new dense consolidation. ALLERGIES Ciprofloxacin. Unit #: [id number] #: [id number] Patient: SKY FAJARDO DISCHARGE MEDICATIONS 1. DuoNebs 1 puff inhalation 4 times daily. 2. Prednisone 10 mg p.o. daily. 3. Zofran 4 mg q.4 p.r.n. nausea. 4. Coreg 12.5 p.o. b.i.d. 5. Colace 100 daily. 6. Lipitor 40 daily. 7. Famotidine 20 mg p.o. b.i.d. 8. Finasteride 5 mg daily. 9. Montelukast 10 mg daily. 10. Tylenol with codeine No. 3 at 1 tablet q.4 p.r.n. moderate pain. 11. Synthroid 200 mcg p.o. daily. 12. Isosorbide dinitrate 10 mg daily. 13. Nitroglycerin 0.4 sublingual p.r.n. chest pain every 5 minutes. 14. Vitamin B12 at 1000 mcg p.o. daily. 15. Folic acid with vitamin B complex 1 tablet p.o. daily. HOSPITAL COURSE A 71-year-old admitted because of shortness of breath. Acute hypoxic respiratory failure. Initially, patient was on six liters and is currently on four liters. I am going to do home O2 evaluation. Acute systolic heart failure with ejection fraction 10% to 15%. Patient was seen by Cardiology. Patient was put on diuretics, and patient received hemodialysis. Currently breathing better. Continue treatment. Patient had a cardiac cath which shows 90% stenosis in the RCA and was told to continue with medical management. Continue with aspirin, Lipitor, and Coreg. Patient will follow with Cardiology as an outpatient. End-stage renal disease, on hemodialysis. Chronic anemia likely from chronic kidney disease. Hypokalemia, replaced with p.o. potassium. Bilateral pleural effusions likely from CHF and end-stage renal disease. Patient received thoracentesis, and two liters were taken from his lungs on the left side. Currently breathing better. Continue with hemodialysis. Moderate to severe mitral regurgitation. Follow with family physician as an outpatient. Chronic obstructive pulmonary disease, stable. Follow with Dr. Faustin. I discussed with Dr. Durand. According to him, patient needs a LifeVest which will be arranged. Patient will be discharged home with home health. Follow with family physician in one week's time. Patient will have dialysis today and be discharged after that. Discussed with Dr. Orozco of Pulmonary. He said it is okay to discharge patient home. Follow with Dr. Faustin in two week's time. Patient agrees to go home. Home O2 evaluation before discharge. Discharge time taken is 40 minutes. Dictated by... Yaa Morris M.D. Unit #: [id number] #: [id number] Patient: SKY FAJARDO EDILIA/zachery TD: 03/03/2017 14:08 JOB #: [id number] CC: Isa Anderson M.D. DISCHARGE SUMMARY Page 1 of 1 X Yaa Morris MD X DISCHARGE SUMMARY
--- NOTE | ~2017-02-27 | CR71 ---
[facility] A Service of [facility] RADIOLOGY TEXT RESULTS PATIENT: SKY FAJARDO LOCATION: [facility] 568 : 43 UNIT #: [id number] AGE: [address]: Yaa Morris MD SEX: M ORDER DR: [id number] [address] [address] [id number] I MR#: [id number] Acc #: [id number] NAME: SKY FAJARDO : 1945 SEX: M STUDY DATE/TIME: 03/03/2017 4:24 UNIT: [facility] ROOM: [facility] STUDY DESCRIPTION: CR Chest Single View Attending Physician: Yaa Morris M.D. Ordering Physician: Ari Orozco Primary Care Physician: Kirk Garcia M.D. MEDICAL IMAGING REPORT This report is preliminary unless electronic signature is present EXAM Portable chest INDICATION Shortness of air. PROCEDURE Frontal view chest. COMPARISON 03/02/2017 FINDINGS Heart size unchanged. Interstitial coarsening is similar. No new dense consolidation. No visible pneumothorax. IMPRESSION Stable. Dictated by... Dennis Acharya M.D. THIS IS AN ELECTRONICALLY VERIFIED REPORT Dennis Acharya M.D. at 03/03/2017 10:27 PM EED/helder TD: 03/03/2017 05:13 JOB #: [id number] MEDICAL IMAGING REPORT [facility] A Service of [facility] RADIOLOGY TEXT RESULTS PATIENT: SKY FAJARDO LOCATION: [facility] : 41 UNIT #: [id number] AGE: [address]: Yaa Morris MD SEX: M ORDER DR: Page 1 of 1 COPY
[~2017-02-27 15:32] MED LIST changes: +ACID REDUCER20 MG PO; +LEVAQUIN250 MG PO; +PREDNISONE10 MG PO; +ZOFRAN PO
[2017-02-27 17:03] LABS: BASOPHIL# 0.1 X10e3 (0-0.3); BASOPHIL% 0.6 % (0-2.5); EOSINOPHIL# 0.6 X10e3 (0-0.7); EOSINOPHIL% 4.9 % (0.0-7.0); HEMATOCRIT 32.6 % (38.0-50.0); HEMOGLOBIN 10.6 gm/dL (13.0-16.0); LYMPHOCYTE# 1.6 X10e3 (1.0-3.5); LYMPHOCYTE% 14.2 % (17.0-45.0); MEAN CELL VOLUME 98.3 FL (83-96); MEAN CORPUSCULAR HEMOGLOBIN 32.1 PG (28-34); MEAN CORPUSCULAR HGB CONC 32.7 g/dL (30-36); MEAN PLATELET VOLUME 7.7 FL (6.5-11.5); MONOCYTE# 0.9 X10e3 (0-1.0); MONOCYTE% 7.8 % (3.0-12.0); NEUTROPHIL# 8.4 X10e3 (1.5-7.1); NEUTROPHIL% 72.5 % (40-75); PLATELET COUNT 119 X10e3 (140-420); RED BLOOD COUNT 3.31 X10e (3.90-5.60); RED CELL DISTRIBUTION WIDTH 16.3 % (11.0-15.5); WHITE BLOOD COUNT 11.6 X10e3 (4.0-10.5)
[2017-02-27 17:05] LABS: DIFF IND NO
[2017-02-27 17:17] LABS: PARTIAL THROMBOPLASTIN TIME 27.8 SECONDS (23.5-31.3)
[2017-02-27 17:33] LABS: ALBUMIN SERUM 3.1 g/dL (3.5-5.0); BILIRUBIN, DIRECT 0.3 mg/dL (0.0-0.2); BILIRUBIN,INDIRECT 0.8 mg/dL (0.0-0.9); BILIRUBIN,TOTAL 1.1 mg/dL (0.2-2.0); BUN/CREATININE RATIO 4.18; CALCIUM SERUM 8.2 mg/dL (8.4-10.2); CREATININE SERUM 5.5 mg/dL (0.6-1.4); GLOM FILT RATE Estimated 9.5 mL/min (>60); MAGNESIUM 1.9 mg/dL (1.6-3.0); PHOSPHOROUS 2.5 mg/dL (2.5-4.6); POTASSIUM 3.1 mmol/L (3.5-5.1); PROTEIN TOTAL SERUM 7.1 g/dL (6.0-8.3)
[2017-02-27 17:51] LABS: POC - CKMB <1.0 ng/mL (0.0-7.9); POC - TROPONIN <0.05 ng/mL (<=0.05)
[2017-02-28 00:02] LABS: CK TOTAL 37 IU/L (36-174)
[2017-02-28 01:19] LABS: URINE APPEARANCE CLEAR; URINE BILIRUBIN NEG (NEG); URINE BLOOD 2+ (NEG); URINE COLOR YELLOW; URINE GLUCOSE 100 MG/DL (NEG); URINE KETONE NEG (NEG); URINE LEUKOCYTE ESTERASE NEG (NEG); URINE NITRATE NEG (NEG); URINE PROTEIN 3+ (NEG); URINE SPECIFIC GRAVITY 1.009 (1.003-1.035); URINE UROBILINOGEN 0.2 MG/DL (NEG)
[2017-02-28 01:21] LABS: U HYALINE CASTS AUWI 0-2 /[LPF]; URBCS1 AUWI 25-50 /[HPF] (0-2); URINE BACTERIA AUWI NEG (NEGATIVE); URINE SQUAMOUS EPITHELIAL CELL NONE SEEN /[HPF]; UWBCS1 AUWI 0-2 (0-5)
[2017-02-28 01:26] LABS: URINE PH 9.5 (5-8)
[2017-02-28 05:37] LABS: BASOPHIL# 0.1 X10e3 (0-0.3); BASOPHIL% 0.5 % (0-2.5); EOSINOPHIL# 0.2 X10e3 (0-0.7); EOSINOPHIL% 1.5 % (0.0-7.0); HEMATOCRIT 29.6 % (38.0-50.0); HEMOGLOBIN 9.8 gm/dL (13.0-16.0); LYMPHOCYTE# 1.6 X10e3 (1.0-3.5); LYMPHOCYTE% 12.6 % (17.0-45.0); MEAN CELL VOLUME 98.5 FL (83-96); MEAN CORPUSCULAR HEMOGLOBIN 32.4 PG (28-34); MEAN CORPUSCULAR HGB CONC 32.9 g/dL (30-36); MEAN PLATELET VOLUME 8.1 FL (6.5-11.5); MONOCYTE# 1.1 X10e3 (0-1.0); MONOCYTE% 8.1 % (3.0-12.0); NEUTROPHIL% 77.3 % (40-75); PLATELET COUNT 128 X10e3 (140-420); RED BLOOD COUNT 3.01 X10e (3.90-5.60); RED CELL DISTRIBUTION WIDTH 15.8 % (11.0-15.5); WHITE BLOOD COUNT 12.9 X10e3 (4.0-10.5)
[2017-02-28 05:48] LABS: DIFF IND NO
[2017-02-28 06:09] LABS: ALBUMIN SERUM 2.7 g/dL (3.5-5.0); BILIRUBIN,TOTAL 0.9 mg/dL (0.2-2.0); BUN/CREATININE RATIO 4.59; CALCIUM SERUM 8.2 mg/dL (8.4-10.2); CREATININE SERUM 6.1 mg/dL (0.6-1.4); GLOM FILT RATE Estimated 8.4 mL/min (>60); MAGNESIUM 1.8 mg/dL (1.6-3.0); PHOSPHOROUS 3.4 mg/dL (2.5-4.6); POTASSIUM 3.6 mmol/L (3.5-5.1); PROTEIN TOTAL SERUM 6.3 g/dL (6.0-8.3)
[2017-02-28 06:46] LABS: CK TOTAL 40 IU/L (36-174)
[2017-03-01 05:35] LABS: HEMATOCRIT 26.7 % (38.0-50.0); HEMOGLOBIN 8.7 gm/dL (13.0-16.0); MEAN CELL VOLUME 98.7 FL (83-96); MEAN CORPUSCULAR HEMOGLOBIN 32.2 PG (28-34); MEAN CORPUSCULAR HGB CONC 32.6 g/dL (30-36); MEAN PLATELET VOLUME 8.1 FL (6.5-11.5); RED BLOOD COUNT 2.7 X10e (3.90-5.60); RED CELL DISTRIBUTION WIDTH 16.3 % (11.0-15.5); WHITE BLOOD COUNT 11.3 X10e3 (4.0-10.5)
[2017-03-01 05:52] LABS: INR 1.1; PARTIAL THROMBOPLASTIN TIME 28.3 SECONDS (23.5-31.3); PROTHROMBIN TIME (PATIENT) 11.4 SECONDS (10.0-11.7)
[2017-03-01 06:07] LABS: MAGNESIUM 2.1 mg/dL (1.6-3.0)
[2017-03-01 06:57] LABS: ALBUMIN SERUM 2.2 g/dL (3.5-5.0); BILIRUBIN,TOTAL 0.4 mg/dL (0.2-2.0); BUN/CREATININE RATIO 6.26; CALCIUM SERUM 8.1 mg/dL (8.4-10.2); CREATININE SERUM 7.5 mg/dL (0.6-1.4); GLOM FILT RATE Estimated 6.5 mL/min (>60); PROTEIN TOTAL SERUM 5.2 g/dL (6.0-8.3)
[2017-03-01 09:33] LABS: BF TOTAL NUCLEATED CELL COUNT 170 CMM (0-100); BODY FLUID APPEARANCE CLEAR; BODY FLUID SOURCE THORACENTESIS
[2017-03-01 09:34] LABS: BODY FLUID RBC <10000 CMM
[2017-03-01 10:00] LABS: PROTEIN, BODY FLUID 1.4 gm/dL
[2017-03-02 05:47] LABS: HEMATOCRIT 25.6 % (38.0-50.0); HEMOGLOBIN 8.6 gm/dL (13.0-16.0); MEAN CELL VOLUME 97.7 FL (83-96); MEAN CORPUSCULAR HEMOGLOBIN 32.7 PG (28-34); MEAN CORPUSCULAR HGB CONC 33.5 g/dL (30-36); MEAN PLATELET VOLUME 8.3 FL (6.5-11.5); RED BLOOD COUNT 2.62 X10e (3.90-5.60); WHITE BLOOD COUNT 9.3 X10e3 (4.0-10.5)
[2017-03-02 07:13] LABS: BUN/CREATININE RATIO 6.84; CALCIUM SERUM 7.7 mg/dL (8.4-10.2); CREATININE SERUM 3.8 mg/dL (0.6-1.4); GLOM FILT RATE Estimated 14.8 mL/min (>60); POTASSIUM 3.4 mmol/L (3.5-5.1)
[2017-03-03 06:01] LABS: HEMATOCRIT 24.7 % (38.0-50.0); HEMOGLOBIN 8.3 gm/dL (13.0-16.0); MEAN CELL VOLUME 98.2 FL (83-96); MEAN CORPUSCULAR HEMOGLOBIN 32.8 PG (28-34); MEAN CORPUSCULAR HGB CONC 33.4 g/dL (30-36); MEAN PLATELET VOLUME 8.4 FL (6.5-11.5); RED BLOOD COUNT 2.52 X10e (3.90-5.60); RED CELL DISTRIBUTION WIDTH 16.2 % (11.0-15.5); WHITE BLOOD COUNT 10.1 X10e3 (4.0-10.5)
[2017-03-03 06:37] LABS: BUN/CREATININE RATIO 7.32; CALCIUM SERUM 7.5 mg/dL (8.4-10.2); CREATININE SERUM 5.6 mg/dL (0.6-1.4); GLOM FILT RATE Estimated 9.3 mL/min (>60); POTASSIUM 3.3 mmol/L (3.5-5.1)
[2017-03-03] MEDS ORDERED: ASPIRIN81 M2 PO (17:01)
[2017-03-03] MEDS ORDERED: DOCUSATE SODIU100 MG PO (17:01)
[2017-03-03] MEDS ORDERED: LIPITOR40 MG PO (17:02)
[2017-03-03] MEDS ORDERED: HYDRALAZINE HC100 MG PO (17:02)
[2017-03-03] MEDS ORDERED: ISORDIL10 MG PO (17:05)
[2017-03-03] MEDS ORDERED: NITROSTAT0.4 MG SL (17:08)
[2017-03-03] MEDS ORDERED: COREG12.5 MG PO (17:09)
== END 2017-03-03 17:48 | disposition home or self-care (01) | DRG 286 ==
LOC: CED 15:32 → C5C 19:10 → CEDOF 19:10 → CED 19:24 → C5C 19:24 → CEDOF 19:24 → C5C 21:59 → CEDOF 21:59 → C5C 21:59
PROVIDERS: Emergency Medicine; Family Medicine; Internal Medicine; Internal Medicine Cardiovascular Disease; Internal Medicine Nephrology; Nurse Practitioner
PROC: 4A023N7 Measurement of Cardiac Sampling and Pressure, Left Heart, Percutaneous Approach (ICD-10-PCS; principal; 2017-03-01)
PROC: B211YZZ Fluoroscopy of Multiple Coronary Arteries using Other Contrast (ICD-10-PCS; 2017-03-01)
PROC: 0W9B3ZZ Drainage of Left Pleural Cavity, Percutaneous Approach (ICD-10-PCS; 2017-03-01)
PROC: 0W993ZZ Drainage of Right Pleural Cavity, Percutaneous Approach (ICD-10-PCS; 2017-03-01)
PROC: 5A1D60Z (ICD-10-PCS; 2017-03-01)
DX: I13.2 Hypertensive heart and chronic kidney disease with heart failure and with stage 5 chronic kidney disease, or end stage renal disease (principal); I50.21 Acute systolic (congestive) heart failure; J96.01 Acute respiratory failure with hypoxia; J90 Pleural effusion, not elsewhere classified; E44.0 Moderate protein-calorie malnutrition; N18.6 End stage renal disease; E87.1 Hypo-osmolality and hyponatremia; I47.1 Supraventricular tachycardia; E87.6 Hypokalemia; I25.10 Atherosclerotic heart disease of native coronary artery without angina pectoris; E83.51 Hypocalcemia; I34.0 Nonrheumatic mitral (valve) insufficiency; J44.9 Chronic obstructive pulmonary disease, unspecified; N40.0 Benign prostatic hyperplasia without lower urinary tract symptoms; I77.6 Arteritis, unspecified; Z99.2 Dependence on renal dialysis
CPT/HCPCS: 36415; 71010; 80048; 80053; 80061; 80076; 81003; 82150; 82550; 82553; 82947; 83605; 83615; 83690; 83735; 83880; 83986; 84100; 84157; 84443; 84484; 85025; 85027; 85610; 85730; 87040; 87070; 87086; 87205; 89051; 93005; 93306; 94640; 94760; 99285; C1769; C1887; C1894; J1644; J2250; J2405; J3010